=== PATIENT | male | born 1950 | race Caucasian/White ===

== ENCOUNTER 2016-12-19 11:14 | Inpatient (IN) | payer MEDICARE, MEDICAID ==
--- NOTE | 2016-12-19 11:54 | CR ---
Clinical history: 66-year-old male complaining shortness of breath. Interpretation: Less than optimal inspiratory effort "residential patient" reveals apparent... * new right lower lobe infiltrate or atelectasis when compared to 26 February 2016 exam. Normal cardiac silhouette without cephalization of flow signs of alveolar edema or dependent effusio n. Chronic atelectasis/fibrosis left base but no sign of lung mass hilar lymphadenopathy or other focal lobar consolidation. CONCLUSION: Patchy new consolidation right lung base (see above). Aspiration?
[2016-12-19 12:00] LABS: CHLORIDE,CL 94 mmol/L (101-111); SODIUM,NA 140 mmol/L (135-145)
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
[2016-12-19] MEDS ORDERED: Vancomycin 2 GM in Sodium Chloride 0.9% 500 ML IV ONE (12:46)
[2016-12-19] MEDS ORDERED: hydrOXYzine HCl 25 MG Tab PO PRN (13:22)
[2016-12-19] MEDS ORDERED: ALPRAZolam 0.5 MG Tab PO PRN (13:22)
[2016-12-19] MEDS ORDERED: Bisacodyl 10 MG Supp RECTAL PRN (13:22)
[2016-12-19] MEDS ORDERED: Zolpidem 5 MG Tab PO PRN (13:29)
[2016-12-19] MEDS ORDERED: Ondansetron 4 MG Tab.DIS PO PRN (13:29)
[2016-12-19] MEDS ORDERED: Albuterol 0.083% 2.5 MG/3 ML Neb Soln NEB PRN (13:34)
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
[2016-12-19] MEDS ORDERED: Ciprofloxacin in D5W 400 MG in Premix Bag 1 BAG IV SCH ×2 (14:45)
[2016-12-19] MEDS: Heparin Sodium 5,000 Units/ML Vial SUBCUT SCH ×2 (15:25→21:31)
[2016-12-19] MEDS: Furosemide 20 MG Tab PO SCH (15:26)
[2016-12-19] MEDS: Sodium Chloride 0.9% 10 ML Syringe FLUSH PRN (16:07)
[2016-12-19] MEDS: methylPREDNISolone Sodium Succinate 40 MG/1 ML SDV IVPUSH SCH ×2 (16:19→21:23)
[2016-12-19] MEDS: Potassium Chloride 10 MEQ Tab.ER PO SCH (17:35)
[2016-12-19] MEDS: Piperacillin/Tazobactam 3.375 GM in Sodium Chloride 0.9% 100 ML IV SCH ×2 (17:57→18:07)
[2016-12-19] MEDS: Albuterol/Ipratropium 3.0-0.5 MG/3 ML Neb Soln NEB SCH (19:28)
[2016-12-19] MEDS: Budesonide 0.5 MG/2 ML Neb Susp NEB SCH (19:28)
[2016-12-19] MEDS ORDERED: QUEtiapine 100 MG Tab PO SCH (21:00)
[2016-12-19] MEDS ORDERED: Divalproex Sodium 250 MG Tab.ER PO SCH (21:00)
[2016-12-19] MEDS ORDERED: MELATONIN 8 MG PO SCH (21:00)
[2016-12-19] MEDS: Vancomycin 1.5 GM in Sodium Chloride 0.9% 500 ML IV SCH (21:27)
[2016-12-19] MEDS: Allopurinol 100 MG Tab PO SCH (21:28)
[2016-12-19] MEDS: Lithium Carbonate 300 MG Tab.ER PO SCH (21:30)
[2016-12-19] MEDS: Lactulose Soln 10 GM/15 ML 30 ML UD Cup PO SCH (21:30)
[2016-12-19] MEDS: Latanoprost 0.005% Ophth Soln 2.5 ML Bottle EYEBOTH SCH (21:31)
[2016-12-20] MEDS: Albuterol/Ipratropium 3.0-0.5 MG/3 ML Neb Soln NEB SCH ×4 (00:17→18:16)
[2016-12-20] MEDS: Piperacillin/Tazobactam 3.375 GM in Sodium Chloride 0.9% 100 ML IV SCH ×5 (00:17→23:53)
[2016-12-20] MEDS: Sodium Chloride 0.9% 10 ML Syringe FLUSH PRN ×6 (03:33→23:52)
[2016-12-20] MEDS: Ciprofloxacin in D5W 400 MG in Premix Bag 1 BAG IV SCH ×4 (03:33→15:29)
[2016-12-20] MEDS: Vancomycin 1.5 GM in Sodium Chloride 0.9% 500 ML IV SCH ×3 (04:40→19:16)
[2016-12-20] MEDS: Heparin Sodium 5,000 Units/ML Vial SUBCUT SCH ×3 (06:00→21:29)
[2016-12-20] MEDS: Isosorbide Mononitrate 60 MG Tab.ER PO SCH (06:01)
[2016-12-20] MEDS: Pantoprazole 40 MG Tab.CR PO SCH (06:01)
[2016-12-20] MEDS: methylPREDNISolone Sodium Succinate 40 MG/1 ML SDV IVPUSH SCH ×3 (06:06→21:29)
[2016-12-20] MEDS: Budesonide 0.5 MG/2 ML Neb Susp NEB SCH ×2 (07:10→18:16)
[2016-12-20 09:50] LABS: O2 DELIVERY DEVICE NASAL CANNULA
[2016-12-20 09:52] LABS: BASE EXCESS ARTERIAL 11 mmol/L ((-2)-(+3)); BICARBONATE,ARTERIAL 39.9 mmol/L (22-26); O2 SATURATION ARTERIAL 90 % (95-100); PO2 ARTERIAL 65 mmHg (70-100)
[2016-12-20 09:54] LABS: PCO2 ARTERIAL 75 mmHg (35-45)
[2016-12-20 09:55] LABS: ALLEN TEST pos; O2 FLOW RATE 2
--- NOTE | 2016-12-20 11:08 | PCM.PN ---
- General Info Date of Service: 12/20/16 Admission Dx/Problem (Free Text): Admission Diagnosis/Problem Admission Diagnosis/Problem Pneumonia Subjective Update: was restless last evening this morning he mod to severe lethargy vitals stable and breathing spontaneously but can not wake him up - Review of Systems General: Denies: Fever Pulmonary: Reports: wheezing Cardiovascular: Denies: Chest Pain Gastrointestinal: Denies: Abdominal pain Neurological: Reports: Other (lethargy) - Patient Data Vitals - most recent: Last Vital Signs Temp 36.4 C 12/20/16 07:00 Pulse 89 12/20/16 07:08 Resp 20 12/20/16 07:00 BP 131/80 12/20/16 07:00 Pulse Ox 99 12/20/16 07:00 Weight - most recent: 126.008 kg I&O - last 24 hours: Intake & Output 12/19/16 12/20/16 12/20/16 22:59 06:59 14:59 Intake Total 1300 1400 Output Total 1400 1200 Balance -100 200 Lab Results last 24 hrs: Laboratory Results - last 24 hr 12/20/16 12/20/16 12/20/16 Range/Units 09:14 09:45 10:00 WBC (5.0-10.0) 10^3/uL RBC (4.6-6.2) 10^6/uL Hgb (14.0-18.0) g/dL Hct (40.0-54.0) % MCV (80-100) fL MCH (27.0-34.0) pg MCHC (33.0-35.0) g/dL Plt Count (150-450) 10^3/uL Neut % (Auto) (42.2-75.2) % Lymph % (Auto) (20.5-50.1) % [place] % (Auto) (2-8) % Eos % (Auto) (1.0-3.0) % Baso % (Auto) (0.0-1.0) % ABG pH 7.35 (7.35-7.45) ABG pCO2 75 H* (35-45) mmHg ABG pO2 65 L (70-100) mmHg ABG HCO3 39.9 H (22-26) mmol/L ABG O2 Saturation 90 L (95-100) % ABG Base Excess 11 H ((-2)-(+3)) mmol/L Jadiel Test pos O2 Delivery Device Nasal cannula Oxygen Flow Rate 2 Sodium (135-145) mmol/L Potassium (3.6-5.0) mmol/L Chloride (101-111) mmol/L Carbon Dioxide (21.0-31.0) mmol/L Anion Gap BUN (7-18) mg/dL Creatinine (0.6-1.3) mg/dL Est Cr Clr Drug Dosing mL/min Estimated GFR (MDRD) Glucose (74-105) mg/dL POC Glucose 155 H (70-105) mg/dl Calcium (8.4-10.2) mg/dl Ammonia 28 (11-35) umol/L 12/20/16 12/20/16 Range/Units 10:00 10:00 WBC 11.7 H (5.0-10.0) 10^3/uL RBC 4.40 L (4.6-6.2) 10^6/uL Hgb 13.1 L (14.0-18.0) g/dL Hct 43.0 (40.0-54.0) % MCV 97.7 (80-100) fL MCH 29.8 (27.0-34.0) pg MCHC 30.5 L (33.0-35.0) g/dL Plt Count 186 (150-450) 10^3/uL Neut % (Auto) 91.7 H (42.2-75.2) % Lymph % (Auto) 5.4 L (20.5-50.1) % [place] % (Auto) 2.8 (2-8) % Eos % (Auto) 0.0 L (1.0-3.0) % Baso % (Auto) 0.1 (0.0-1.0) % ABG pH (7.35-7.45) ABG pCO2 (35-45) mmHg ABG pO2 (70-100) mmHg ABG HCO3 (22-26) mmol/L ABG O2 Saturation (95-100) % ABG Base Excess ((-2)-(+3)) mmol/L Jadiel Test O2 Delivery Device Oxygen Flow Rate Sodium 140 (135-145) mmol/L Potassium 4.6 (3.6-5.0) mmol/L Chloride 96 L (101-111) mmol/L Carbon Dioxide 40.0 H (21.0-31.0) mmol/L Anion Gap 8.6 BUN 16 (7-18) mg/dL Creatinine 1.4 H (0.6-1.3) mg/dL Est Cr Clr Drug Dosing 55.28 mL/min Estimated GFR (MDRD) 51 Glucose 152 H (74-105) mg/dL POC Glucose (70-105) mg/dl Calcium 9.6 (8.4-10.2) mg/dl Ammonia (11-35) umol/L Swapnil Results last 24 hrs: Microbiology 12/19/16 18:22 Influenza Type A Antigen Screen - Final Nasal, Left NEGATIVE INFLUENZA A VIRUS AG Influenza Type B Antigen Screen - Final NEGATIVE INFLUENZA B VIRUS AG Med Orders - Current: Current Medications Albuterol (Proventil Neb Soln) 2.5 mg NEB Q2H PRN PRN Reason: sob Albuterol/Ipratropium (Duoneb 3.0-0.5 Mg/3 Ml) 3 ml NEB Q6HRRT [facility] Last Admin: 12/20/16 07:10 Dose: 3 ml Allopurinol (Zyloprim) 100 mg PO BID [facility] Last Admin: 12/19/16 21:28 Dose: 100 mg Alprazolam (Xanax) 1 mg PO Q8H PRN PRN Reason: Anxiety Aspirin (Halfprin) 81 mg PO DAILY [facility] Bisacodyl (Dulcolax) 10 mg RECTAL DAILY PRN PRN Reason: Constipation Budesonide (Pulmicort) 0.5 mg NEB BIDRT [facility] Last Admin: 12/20/16 07:10 Dose: 0.5 mg Divalproex Sodium (Depakote Er) 750 mg PO BEDTIME [facility] Last Admin: 12/19/16 21:29 Dose: 750 mg Furosemide (Lasix) 60 mg PO DAILY [facility] Furosemide (Lasix) 20 mg PO DAILY@1400 [facility] Last Admin: 12/19/16 15:26 Dose: 20 mg Heparin Sodium (Porcine) (Heparin Sodium) 5,000 units SUBCUT Q8HR [facility] Last Admin: 12/20/16 06:00 Dose: 5,000 units Hydroxyzine HCl (Atarax) 25 mg PO Q8HR PRN PRN Reason: Anxiety Piperacillin Sod/Tazobactam (Sod 3.375 gm/ Sodium Chloride) 100 mls @ 200 mls/ hr IV Q6HR [facility] Last Infusion: 12/20/16 07:00 Dose: Infused Vancomycin HCl 1.5 gm/ Sodium (Chloride) 500 mls @ 333.333 mls/hr IV Q8H [facility] Last Admin: 12/20/16 04:40 Dose: 333.333 mls/hr Ciprofloxacin/Dextrose 400 mg/ (Premix) 200 mls @ 200 mls/hr IV Q12H [facility] Last Admin: 12/20/16 03:33 Dose: 200 mls/hr Isosorbide Mononitrate (Imdur) 60 mg PO DAILY@0700 [facility] Last Admin: 12/20/16 06:01 Dose: 60 mg Lactulose (Cephulac) 10 gm PO BEDTIME [facility] Last Admin: 12/19/16 21:30 Dose: 10 gm Latanoprost (Xalatan 0.005% Ophth Soln) 0 ml EYEBOTH BEDTIME [facility] Last Admin: 12/19/16 21:31 Dose: 1 drop [place] Carbonate (Lithobid) 300 mg PO BID [facility] Last Admin: 12/19/16 21:30 Dose: 300 mg Methylprednisolone Sodium Succinate (Solu-Medrol) 40 mg IVPUSH Q8HR [facility] Last Admin: 12/20/16 06:06 Dose: 40 mg Non-Formulary Medication (Melatonin [Melatonin]) 8 mg PO BEDTIME [facility] Ondansetron HCl (Zofran Odt) 4 mg PO Q6H PRN PRN Reason: nausea, able to take PO Pantoprazole Sodium (Protonix) 40 mg PO ACBRK [facility] Last Admin: 12/20/16 06:01 Dose: 40 mg Potassium Chloride (Klor-Con 10) 20 meq PO BIDMEALS [facility] Last Admin: 12/19/16 17:35 Dose: 20 meq Quetiapine Fumarate (Seroquel) 450 mg PO BEDTIME [facility] Last Admin: 12/19/16 21:29 Dose: 450 mg Senna/Docusate Sodium (Senna Plus) 2 tab PO BID [facility] Last Admin: 12/19/16 21:28 Dose: 2 tab Simvastatin (Zocor) 20 mg PO BEDTIME [facility] Sodium Chloride (Saline Flush) 10 ml FLUSH ASDIRECTED PRN PRN Reason: Keep Vein Open Last Admin: 12/20/16 04:42 Dose: 10 ml Spironolactone (Aldactone) 50 mg PO DAILY [facility] Vancomycin HCl (Pharmacy To Dose - Vancomycin) 1 dose .XX ASDIRECTED [facility] Zolpidem Tartrate (Ambien) 5 mg PO BEDTIME PRN PRN Reason: Sleep Discontinued Medications Vancomycin HCl 2 gm/ Sodium (Chloride) 500 mls @ 334 mls/hr IV ONETIME ONE Stop: 12/19/16 14:15 Last Admin: 12/19/16 13:07 Dose: 334 mls/hr Ciprofloxacin/Dextrose 400 mg/ (Premix) 200 mls @ 200 mls/hr IV Q12HR [facility] Last Admin: 12/19/16 16:28 Dose: 200 mls/hr - Exam Quality Assessment: supplemental oxygen General: no acute distress, obtunded Neck: supple Lungs: Rhonchi, Wheezing Cardiovascular: Regular Rate, Regular Rhythm Abdomen: bowel sounds present, soft, no tenderness, other (morbidly obese) Extremities: edema (b/l legs) Skin: warm, dry Neurological: other (not following commands) Psy/Mental Status: other (non responsive) - Problem List & Annotations (1) Pneumonia SNOMED Code(s): 294687186 Code(s): J18.9 - PNEUMONIA, UNSPECIFIED ORGANISM Status: Acute Current Visit: Yes Qualifiers: Pneumonia type: due to unspecified organism Laterality: right Lung location: lower lobe of lung Qualified Code(s): J18.1 - Lobar pneumonia, unspecified organism (2) Arterial ischemic stroke, MCA (middle cerebral artery), left, remote, resolved SNOMED Code(s): 234925600, 632836674 Code(s): Z86.73 - PRSNL HX OF TIA (TIA), AND CEREB INFRC W/O RESID DEFICITS Status: Chronic Current Visit: No Onset Date: 11/24/14 (3) COPD (chronic obstructive pulmonary disease) SNOMED Code(s): 28717598 Code(s): J44.9 - CHRONIC OBSTRUCTIVE PULMONARY DISEASE, UNSPECIFIED Status : Chronic Current Visit: No (4) Hypertension SNOMED Code(s): 23756389 Code(s): I10 - ESSENTIAL (PRIMARY) HYPERTENSION Status: Chronic Current Visit: No Qualifiers: Hypertension type: unspecified secondary hypertension Qualified Code(s): I15.9 - Secondary hypertension, unspecified - Problem List Review Problem List Initiated/Reviewed/Updated: Yes - My Orders Last 24 Hours: My Active Orders 12/19/16 13:33 RT Aerosol Therapy [RC] ASDIRECTED 12/19/16 13:34 Albuterol [Proventil Neb Soln] 2.5 mg NEB Q2H PRN 12/19/16 13:37 CULTURE SPUTUM + SMEAR [RM] Routine 12/19/16 13:45 Vancomycin Pharmacy to Dose [Pharmacy to Dose - Vancomycin] 1 dose .XX ASDIRECTED 12/19/16 14:45 methylPREDNISolone Sod Succ [Solu-MEDROL] 40 mg IVPUSH Q8HR 12/19/16 15:00 Piperacillin/Tazobactam [Zosyn] 3.375 gm Sodium Chloride 0.9% [Normal Saline] 100 ml IV Q6HR 12/19/16 18:00 Albuterol/Ipratropium [DuoNeb 3.0-0.5 MG/3 ML] 3 ml NEB Q6HRRT Budesonide [Pulmicort] 0.5 mg NEB BIDRT 12/19/16 21:00 Vancomycin 1.5 gm Sodium Chloride 0.9% [Normal Saline] 500 ml IV Q8H 12/20/16 04:00 Ciprofloxacin in D5W [Cipro in D5W 400 MG/200 ML] 400 mg Premix Bag 1 bag IV Q12H 12/20/16 09:41 ABG [BLOOD GAS ARTERIAL] [BG] Routine 12/20/16 12:30 CREATININE W/GFR [CHEM] Timed VANCOMYCIN TROUGH [CHEM] Timed - Plan Plan:: 66-year-old [facility] resident presented with an acute on chronic hypoxemic respiratory failure. He has been requiring home oxygen to start with. Has a history of COPD, morbid obesity, sleep apnea. acute encephalopathy due to metabolic acidosis and co2 narcosis The patient's blood pressure heart rate oxygen saturation and glucose is normal Obtained ABG that showed respiratory acidosis with CO2 retention Will start BiPAP Decrease evening medications that can cause lethargy: depakote to 500mg ER, seroquel to 300 mg shortness of breath with acute on chronic hypoxemic respiratory failure Likely due to acute COPD exacerbation and pneumonia Supplement oxygen as needed for now treat with BiPAP Acute COPD exacerbation Treat with IV Solu Medrol, inhaled Pulmicort, scheduled DuoNeb, p.r.n. albuterol Acute healthcare associated pneumonia blood culture pending sputum culture Pending influenza swab: negative Treat empirically with ciprofloxacin Zosyn and vancomycin Bipolar disorder Continue Seroquel, lithium Morbid obesity This contribute to hypoxemic respiratory failure We will treat with physical therapy and occupational therapy Hypertension Treat with atenolol History of CVA Will have pt/ot Continue aspirin Chronic kidney disease stage II Monitor electrolytes and renal function tests Sleep apnea encourage to use BiPAP at night Lymphedema and chronic lower extremity swelling Use compression stocking on the right leg and lymphedema wrap on the left Continue Lasix and Aldactone follow electrolytes DVT prophylaxis with subcutaneous heparin
[2016-12-20] MEDS: Aspirin 81 MG Tab.EC PO SCH (14:27)
[2016-12-20] MEDS: Potassium Chloride 10 MEQ Tab.ER PO SCH ×2 (14:27→18:15)
[2016-12-20] MEDS: Spironolactone 25 MG Tab PO SCH (14:27)
[2016-12-20] MEDS: Allopurinol 100 MG Tab PO SCH ×2 (14:27→20:53)
[2016-12-20] MEDS: Furosemide 20 MG Tab PO SCH ×2 (14:27→14:34)
[2016-12-20] MEDS: Lithium Carbonate 300 MG Tab.ER PO SCH (14:28)
[2016-12-20] MEDS ORDERED: Furosemide 40 MG/4 ML VIAL IVPUSH ONE (14:55)
[2016-12-20] MEDS: Simvastatin 10 MG Tab PO SCH (20:52)
[2016-12-20] MEDS: Lactulose Soln 10 GM/15 ML 30 ML UD Cup PO SCH (20:53)
[2016-12-20] MEDS: Latanoprost 0.005% Ophth Soln 2.5 ML Bottle EYEBOTH SCH (20:54)
[2016-12-20] MEDS ORDERED: Divalproex Sodium 250 MG Tab.ER PO SCH (21:00)
[2016-12-20] MEDS ORDERED: QUEtiapine 100 MG Tab PO SCH (21:00)
[2016-12-21] MEDS: Albuterol/Ipratropium 3.0-0.5 MG/3 ML Neb Soln NEB SCH ×4 (00:04→17:42)
[2016-12-21] MEDS: Sodium Chloride 0.9% 10 ML Syringe FLUSH PRN ×4 (00:51→06:11)
[2016-12-21] MEDS: Ciprofloxacin in D5W 400 MG in Premix Bag 1 BAG IV SCH ×4 (03:28→16:17)
[2016-12-21] MEDS: methylPREDNISolone Sodium Succinate 40 MG/1 ML SDV IVPUSH SCH ×3 (05:35→22:02)
[2016-12-21] MEDS: Piperacillin/Tazobactam 3.375 GM in Sodium Chloride 0.9% 100 ML IV SCH ×4 (05:37→23:55)
[2016-12-21] MEDS: Isosorbide Mononitrate 60 MG Tab.ER PO SCH (06:03)
[2016-12-21] MEDS: Pantoprazole 40 MG Tab.CR PO SCH (06:03)
[2016-12-21] MEDS: Heparin Sodium 5,000 Units/ML Vial SUBCUT SCH ×3 (06:04→22:02)
[2016-12-21] MEDS: Vancomycin 1.5 GM in Sodium Chloride 0.9% 500 ML IV SCH (06:12)
[2016-12-21] MEDS: Budesonide 0.5 MG/2 ML Neb Susp NEB SCH ×2 (07:32→17:42)
[2016-12-21] MEDS ORDERED: QUEtiapine 100 MG Tab PO ONE (09:53)
[2016-12-21] MEDS: Spironolactone 25 MG Tab PO SCH (10:16)
[2016-12-21] MEDS: Aspirin 81 MG Tab.EC PO SCH (10:16)
[2016-12-21] MEDS: Allopurinol 100 MG Tab PO SCH ×2 (10:16→20:41)
[2016-12-21] MEDS: Furosemide 20 MG Tab PO SCH ×2 (10:17→13:26)
[2016-12-21] MEDS: Potassium Chloride 10 MEQ Tab.ER PO SCH ×2 (10:17→17:57)
[2016-12-21] MEDS: Lithium Carbonate 300 MG Tab.ER PO SCH ×2 (10:24→20:37)
--- NOTE | 2016-12-21 11:10 | PCM.PN ---
- General Info Date of Service: 12/21/16 Admission Dx/Problem (Free Text): Admission Diagnosis/Problem Admission Diagnosis/Problem Pneumonia Subjective Update: the patient was very lethargic yesterday Noted to have an acute hypoxemic hypercapnic respiratory failure hAs spent about 24 hours on BiPAP The patient's alertness has significantly improved Today he is sitting up on the side of the bed, complaining that he cannot tolerate the BiPAP He has been on nasal cannula oxygen in the past few hours Appears disoriented to recent events, place Functional Status: Reports: pain controlled, tolerating diet - Review of Systems General: Reports: Weakness. Denies: Fever Pulmonary: Denies: shortness of breath, cough Cardiovascular: Denies: Chest Pain Gastrointestinal: Denies: Abdominal pain Neurological: Reports: Confusion Psychiatric: Denies: hallucinations - Patient Data Vitals - most recent: Last Vital Signs Temp 36.6 C 12/21/16 07:00 Pulse 69 12/21/16 07:25 Resp 20 12/21/16 07:00 BP 133/90 12/21/16 07:00 Pulse Ox 92 L 12/21/16 07:25 Weight - most recent: 126.008 kg I&O - last 24 hours: Intake & Output 12/20/16 12/21/16 12/21/16 22:59 06:59 14:59 Intake Total 1969 800 521 Output Total 1200 600 Balance 769 200 521 Lab Results last 24 hrs: Laboratory Results - last 24 hr 12/20/16 12/21/16 12/21/16 Range/Units 13:20 06:15 06:15 WBC 11.4 H (5.0-10.0) 10^3/uL RBC 3.99 L (4.6-6.2) 10^6/uL Hgb 12.2 L (14.0-18.0) g/dL Hct 37.9 L (40.0-54.0) % MCV 95.0 (80-100) fL MCH 30.6 (27.0-34.0) pg MCHC 32.2 L (33.0-35.0) g/dL Plt Count 212 (150-450) 10^3/uL Neut % (Auto) 83.9 H (42.2-75.2) % Lymph % (Auto) 8.7 L (20.5-50.1) % [place] % (Auto) 7.3 (2-8) % Eos % (Auto) 0.0 L (1.0-3.0) % Baso % (Auto) 0.1 (0.0-1.0) % Add Manual Diff Yes Neutrophils % (Manual) 89 % Band Neutrophils % 1 % Lymphocytes % (Manual) 5 % Monocytes % (Manual) 5 % Nucleated RBCs 1 /100WBC Sodium 142 (135-145) mmol/L Potassium 3.8 (3.6-5.0) mmol/L Chloride 98 L (101-111) mmol/L Carbon Dioxide 36.0 H (21.0-31.0) mmol/L Anion Gap 11.8 BUN 30 H (7-18) mg/dL Creatinine 1.5 H (0.6-1.3) mg/dL Est Cr Clr Drug Dosing 51.59 mL/min Estimated GFR (MDRD) 47 Glucose 143 H (74-105) mg/dL Calcium 9.4 (8.4-10.2) mg/dl Vancomycin Trough 22.8 H (10-15) ug/ml Med Orders - Current: Current Medications Albuterol (Proventil Neb Soln) 2.5 mg NEB Q2H PRN PRN Reason: sob Albuterol/Ipratropium (Duoneb 3.0-0.5 Mg/3 Ml) 3 ml NEB Q6HRRT [facility] Last Admin: 12/21/16 07:32 Dose: 3 ml Allopurinol (Zyloprim) 100 mg PO BID [facility] Last Admin: 12/21/16 10:16 Dose: 100 mg Aspirin (Halfprin) 81 mg PO DAILY [facility] Last Admin: 12/21/16 10:16 Dose: 81 mg Bisacodyl (Dulcolax) 10 mg RECTAL DAILY PRN PRN Reason: Constipation Budesonide (Pulmicort) 0.5 mg NEB BIDRT [facility] Last Admin: 12/21/16 07:32 Dose: 0.5 mg Divalproex Sodium (Depakote Er) 500 mg PO BEDTIME [facility] Furosemide (Lasix) 60 mg PO DAILY [facility] Last Admin: 12/21/16 10:17 Dose: 60 mg Furosemide (Lasix) 20 mg PO DAILY@1400 [facility] Last Admin: 12/20/16 14:34 Dose: Not Given Heparin Sodium (Porcine) (Heparin Sodium) 5,000 units SUBCUT Q8HR [facility] Last Admin: 12/21/16 06:04 Dose: 5,000 units Piperacillin Sod/Tazobactam (Sod 3.375 gm/ Sodium Chloride) 100 mls @ 200 mls/ hr IV Q6HR [facility] Last Admin: 12/21/16 05:37 Dose: 200 mls/hr Ciprofloxacin/Dextrose 400 mg/ (Premix) 200 mls @ 200 mls/hr IV Q12H [facility] Last Admin: 12/21/16 03:28 Dose: 200 mls/hr Isosorbide Mononitrate (Imdur) 60 mg PO DAILY@0700 [facility] Last Admin: 12/21/16 06:03 Dose: 60 mg Lactulose (Cephulac) 10 gm PO BEDTIME [facility] Last Admin: 12/20/16 20:53 Dose: 10 gm Latanoprost (Xalatan 0.005% Ophth Soln) 0 ml EYEBOTH BEDTIME [facility] Last Admin: 12/20/16 20:54 Dose: 1 drop [place] Carbonate (Lithobid) 300 mg PO BID [facility] Last Admin: 12/21/16 10:24 Dose: 300 mg Methylprednisolone Sodium Succinate (Solu-Medrol) 40 mg IVPUSH Q8HR [facility] Last Admin: 12/21/16 05:35 Dose: 40 mg Ondansetron HCl (Zofran Odt) 4 mg PO Q6H PRN PRN Reason: nausea, able to take PO Pantoprazole Sodium (Protonix) 40 mg PO ACBRK [facility] Last Admin: 12/21/16 06:03 Dose: 40 mg Potassium Chloride (Klor-Con 10) 20 meq PO BIDMEALS [facility] Last Admin: 12/21/16 10:17 Dose: 20 meq Quetiapine Fumarate (Seroquel) 300 mg PO BEDTIME [facility] Senna/Docusate Sodium (Senna Plus) 2 tab PO BID [facility] Last Admin: 12/21/16 10:16 Dose: 2 tab Simvastatin (Zocor) 20 mg PO BEDTIME [facility] Last Admin: 12/20/16 20:52 Dose: 20 mg Sodium Chloride (Saline Flush) 10 ml FLUSH ASDIRECTED PRN PRN Reason: Keep Vein Open Last Admin: 12/21/16 06:11 Dose: 10 ml Spironolactone (Aldactone) 50 mg PO DAILY [facility] Last Admin: 12/21/16 10:16 Dose: 50 mg Discontinued Medications Alprazolam (Xanax) 1 mg PO Q8H PRN PRN Reason: Anxiety Divalproex Sodium (Depakote Er) 750 mg PO BEDTIME [facility] Last Admin: 12/19/16 21:29 Dose: 750 mg Divalproex Sodium (Depakote Er) 500 mg PO BEDTIME [facility] Furosemide (Lasix) 40 mg IVPUSH NOW ONE Stop: 12/20/16 14:56 Last Admin: 12/20/16 15:30 Dose: 40 mg Hydroxyzine HCl (Atarax) 25 mg PO Q8HR PRN PRN Reason: Anxiety Vancomycin HCl 2 gm/ Sodium (Chloride) 500 mls @ 334 mls/hr IV ONETIME ONE Stop: 12/19/16 14:15 Last Admin: 12/19/16 13:07 Dose: 334 mls/hr Ciprofloxacin/Dextrose 400 mg/ (Premix) 200 mls @ 200 mls/hr IV Q12HR [facility] Last Admin: 12/19/16 16:28 Dose: 200 mls/hr Vancomycin HCl 1.5 gm/ Sodium (Chloride) 500 mls @ 333.333 mls/hr IV Q8H [facility] Last Admin: 12/20/16 14:32 Dose: Not Given Vancomycin HCl 1.5 gm/ Sodium (Chloride) 500 mls @ 333.333 mls/hr IV Q12H [facility] Last Admin: 12/21/16 06:12 Dose: 333.333 mls/hr [place] Carbonate (Lithobid) 300 mg PO BID [facility] Last Admin: 12/20/16 14:28 Dose: Not Given Non-Formulary Medication (Melatonin [Melatonin]) 8 mg PO BEDTIME [facility] Last Admin: 12/20/16 14:29 Dose: Not Given Quetiapine Fumarate (Seroquel) 450 mg PO BEDTIME [facility] Last Admin: 12/19/16 21:29 Dose: 450 mg Quetiapine Fumarate (Seroquel) 300 mg PO BEDTIME [facility] Quetiapine Fumarate (Seroquel) 100 mg PO ONETIME ONE Stop: 12/21/16 09:54 Last Admin: 12/21/16 10:24 Dose: 100 mg Vancomycin HCl (Pharmacy To Dose - Vancomycin) 1 dose .XX ASDIRECTED [facility] Zolpidem Tartrate (Ambien) 5 mg PO BEDTIME PRN PRN Reason: Sleep - Exam Quality Assessment: supplemental oxygen General: alert. No: oriented Neck: supple Lungs: Normal respiratory effort, Decreased breath sounds. No: Rales Cardiovascular: Regular Rate, Regular Rhythm Abdomen: bowel sounds present, soft, no tenderness, no distension, other (obese) Extremities: edema (bilateral 2+) Skin: warm, dry Neurological: no new focal deficit Psy/Mental Status: alert, normal affect (hyperactive, mildly agitated), other ( he says he is not having with his life since his stroke) - Problem List & Annotations (1) Pneumonia SNOMED Code(s): 099121036 Code(s): J18.9 - PNEUMONIA, UNSPECIFIED ORGANISM Status: Acute Current Visit: Yes Qualifiers: Pneumonia type: due to unspecified organism Laterality: right Lung location: lower lobe of lung Qualified Code(s): J18.1 - Lobar pneumonia, unspecified organism (2) Arterial ischemic stroke, MCA (middle cerebral artery), left, remote, resolved SNOMED Code(s): 095134251, 352590745 Code(s): Z86.73 - PRSNL HX OF TIA (TIA), AND CEREB INFRC W/O RESID DEFICITS Status: Chronic Current Visit: No Onset Date: 11/24/14 (3) COPD (chronic obstructive pulmonary disease) SNOMED Code(s): 02713636 Code(s): J44.9 - CHRONIC OBSTRUCTIVE PULMONARY DISEASE, UNSPECIFIED Status : Chronic Current Visit: No (4) Hypertension SNOMED Code(s): 22058299 Code(s): I10 - ESSENTIAL (PRIMARY) HYPERTENSION Status: Chronic Current Visit: No Qualifiers: Hypertension type: unspecified secondary hypertension Qualified Code(s): I15.9 - Secondary hypertension, unspecified - Problem List Review Problem List Initiated/Reviewed/Updated: Yes - My Orders Last 24 Hours: My Active Orders 12/21/16 10:00 [place] Carbonate [Lithobid] 300 mg PO BID 12/21/16 21:00 Divalproex Sodium [Depakote ER] 500 mg PO BEDTIME [facility] [SEROquel] 300 mg PO BEDTIME - Plan Plan:: 66-year-old [facility] resident presented with an acute on chronic hypoxemic respiratory failure. He has been requiring home oxygen to start with. Has a history of COPD, morbid obesity, sleep apnea. acute encephalopathy due to metabolic acidosis and co2 narcosis resolved with the use of BiPAP the patient has sleep apnea and was suggested to use BiPAP at night but he is non-compliant and poorly tolerating it I have held but now will resume with the decreased dose of his medications that can cause lethargy: depakote to 500mg ER, seroquel to 300 mg shortness of breath with acute on chronic hypoxemic hypercapnic respiratory failure Likely due to acute COPD exacerbation and pneumonia Supplement oxygen as needed for now treat with BiPAP as tolerated Acute COPD exacerbation Treat with IV Solu Medrol, inhaled Pulmicort, scheduled DuoNeb, p.r.n. albuterol Acute healthcare associated pneumonia blood culture pending sputum culture Pending influenza swab: negative Treat empirically with ciprofloxacin Zosyn Will stop vancomycin Bipolar disorder Continue Seroquel, lithium at reduced doses Will give a stat dose of Seroquel 100 mg now Morbid obesity This contribute to hypoxemic respiratory failure We will treat with physical therapy and occupational therapy Hypertension Treat with atenolol History of CVA continue with pt/ot Continue aspirin Chronic kidney disease stage II Monitor electrolytes and renal function tests Sleep apnea encourage to use BiPAP at night Lymphedema and chronic lower extremity swelling Use compression stocking on the right leg and lymphedema wrap on the left Continue Lasix and Aldactone follow electrolytes DVT prophylaxis with subcutaneous heparin
[2016-12-21] MEDS: Divalproex Sodium 250 MG Tab.ER PO SCH (20:38)
[2016-12-21] MEDS: QUEtiapine 100 MG Tab PO SCH (20:39)
[2016-12-21] MEDS: Simvastatin 10 MG Tab PO SCH (20:40)
[2016-12-21] MEDS: Latanoprost 0.005% Ophth Soln 2.5 ML Bottle EYEBOTH SCH (20:43)
[2016-12-21] MEDS: Lactulose Soln 10 GM/15 ML 30 ML UD Cup PO SCH (21:50)
[2016-12-22] MEDS: Albuterol/Ipratropium 3.0-0.5 MG/3 ML Neb Soln NEB SCH ×4 (01:32→18:11)
[2016-12-22] MEDS: Ciprofloxacin in D5W 400 MG in Premix Bag 1 BAG IV SCH ×4 (03:28→15:54)
[2016-12-22] MEDS: Heparin Sodium 5,000 Units/ML Vial SUBCUT SCH ×3 (05:59→21:46)
[2016-12-22] MEDS: methylPREDNISolone Sodium Succinate 40 MG/1 ML SDV IVPUSH SCH ×3 (06:01→21:48)
[2016-12-22] MEDS: Isosorbide Mononitrate 60 MG Tab.ER PO SCH (06:02)
[2016-12-22] MEDS: Pantoprazole 40 MG Tab.CR PO SCH (06:02)
[2016-12-22] MEDS: Piperacillin/Tazobactam 3.375 GM in Sodium Chloride 0.9% 100 ML IV SCH ×3 (06:03→18:05)
[2016-12-22] MEDS: Budesonide 0.5 MG/2 ML Neb Susp NEB SCH ×3 (07:42→18:11)
[2016-12-22] MEDS: Furosemide 20 MG Tab PO SCH ×2 (08:12→14:51)
[2016-12-22] MEDS: Lithium Carbonate 300 MG Tab.ER PO SCH ×2 (08:12→21:52)
[2016-12-22] MEDS: Potassium Chloride 10 MEQ Tab.ER PO SCH ×2 (08:13→18:06)
[2016-12-22] MEDS: Allopurinol 100 MG Tab PO SCH ×2 (08:13→21:54)
[2016-12-22] MEDS: Spironolactone 25 MG Tab PO SCH (08:13)
[2016-12-22] MEDS: Aspirin 81 MG Tab.EC PO SCH (08:13)
[2016-12-22] MEDS: Sodium Chloride 0.9% 10 ML Syringe FLUSH PRN ×4 (12:04→21:48)
--- NOTE | 2016-12-22 13:18 | PN ---
DATE: 12/22/2016 HISTORY OF PRESENT ILLNESS: Mr. Onel Slaugther is a 66-year-old male with medical history significant for hypertension, hyperlipidemia, morbid obesity, obstructive sleep apnea, chronic obstructive pulmonary disease, lymphedema, alf resident, admitted with increasing shortness of breath, wheezing, and hypoxia, was noted to be in acute COPD exacerbation and possible healthcare- associated pneumonia. For the last 24 hours, the patient's shortness of breath seems to be improving. He denies any complaints of chest pain. No shortness of breath. No abdominal pain. No nausea. No vomiting. No diarrhea, but the patient claims that he has been in a lot of stress and he feels as if he is going to . He relates his condition to his previous hospitalization where he had stroke in the hospital, so he tends to have a posttraumatic stress disorder. REVIEW OF SYSTEMS: Cardiovascular, respiratory, gastrointestinal, neurology, constitutional were all evaluated. PHYSICAL EXAMINATION: Vital Signs: Temperature of 98.2, pulse of 80, blood pressure 125/77, respiratory rate of 20, saturating at 90% on 2 L of oxygen. General Appearance: The patient is well oriented to time, place, and person. Follows commands spontaneously. Cardiovascular: S1, S2 heard with normal intensity. No gallops. Respiratory: Clear to auscultation bilaterally. No wheeze. Mild crepitations at the bases. Mild wheeze at the bases. Abdomen: Soft. Bowel sounds positive. Nontender. No rigidity. Extremities: Mild edema in bilateral lower extremities. NEUROLOGY: No gross focal neurological deficit. Skin: No acute rash noted. PSYCHIATRY: The patient appears to be stressed out and in mild distress. MEDICATIONS: 1. Proventil 2.5 mg nebulizer q.2 hourly as needed for shortness of breath. 2. DuoNeb 3 mL nebulizer q.6 hours. 3. Allopurinol 100 mg twice a day. 4. Aspirin 81 mg daily. 5. Dulcolax 10 mg rectal as needed for constipation. 6. Pulmicort 0.5 mg nebulizer twice a day. 7. Ciprofloxacin every 12 hours. 8. Depakote 500 mg at bedtime. 9. Lasix 20 mg daily at noon and 60 mg in a.m. 10.Heparin 5000 subcutaneous q.8 hourly. 11.Imdur 60 mg daily. 12.Lactulose 10 mg at bedtime. 13.Xalatan eye drops. 14.[place] 300 mg twice a day. 15.Methylprednisolone 40 mg IV q.8 hourly. 16.Zofran 4 mg q.6 hours. 17.Protonix 40 mg daily. 18.Zosyn q.6 hours. 19.Potassium chloride 20 mEq twice a day. 20.Seroquel 300 mg at bedtime. 21.Zocor 20 mg at bedtime. 22.Spironolactone 50 mg daily. LABORATORY DATA: Reviewed. WBC 9.7, hemoglobin 13.5, hematocrit 42.2, platelet count 228. Sodium 141, potassium 3.8, chloride 100, bicarb 31, BUN 32, creatinine 1.5. Glucose 140. Microbiology so far is good, no growth. ASSESSMENT: 1. Acute chronic obstructive pulmonary disease exacerbation. 2. Possible healthcare-associated pneumonia. 3. Acute on chronic hypoxic respiratory failure. 4. Bipolar disorder. 5. Morbid obesity. 6. Hypertension. 7. History of cerebrovascular accident. 8. Chronic artery disease. 9. Obstructive sleep apnea, requiring CPAP at night. PLAN: 1. Acute COPD exacerbation. The patient is currently on nebulizers with Pulmicort and DuoNeb nebulizer, and he is on IV methylprednisone. His wheezing has much improved. We will taper down the steroids to oral prednisone at this time. We will closely follow. 2. Acute on chronic hypoxic respiratory failure. The patient was noted to be very hypoxic at the time of admission. He is on chronic oxygen, continue the same. Try to maintain saturations between 90% to 95%. 3. Pneumonia. This is possibly healthcare-associated pneumonia. The patient is currently on broad-spectrum antibiotics, continue the same. We will switch him to oral antibiotics at the time of discharge. 4. Bipolar disorder. The patient is currently on Seroquel and lithium, continue the same. The patient has been in little distress at this time. As the patient relates to his condition with history of stroke in the past, the patient was educated about stress relieving techniques and explained about importance of treatment, which he understands and is more calmer at this time. 5. Hypertension. The patient's blood pressure seems to be in acceptable range. Continue with current antihypertensive medications. 6. Sleep apnea. Continue with CPAP. 7. DVT prophylaxis. Continue with heparin. 8. Chronic kidney disease, remains stable. Try to avoid any nephrotoxic agents. Dose adjust medications for renal function, especially the IV antibiotics. 9. Possible discharge in a.m. if he remains hemodynamically stable. [facility] /[id number]
[2016-12-22] MEDS: Divalproex Sodium 250 MG Tab.ER PO SCH (21:52)
[2016-12-22] MEDS: QUEtiapine 100 MG Tab PO SCH (21:53)
[2016-12-22] MEDS: Simvastatin 10 MG Tab PO SCH (21:54)
[2016-12-22] MEDS: Latanoprost 0.005% Ophth Soln 2.5 ML Bottle EYEBOTH SCH (21:55)
[2016-12-22] MEDS: Lactulose Soln 10 GM/15 ML 30 ML UD Cup PO SCH (21:57)
[2016-12-23] MEDS: Sodium Chloride 0.9% 10 ML Syringe FLUSH PRN ×7 (00:24→21:59)
[2016-12-23] MEDS: Piperacillin/Tazobactam 3.375 GM in Sodium Chloride 0.9% 100 ML IV SCH ×4 (00:25→17:11)
[2016-12-23] MEDS: Albuterol/Ipratropium 3.0-0.5 MG/3 ML Neb Soln NEB SCH ×4 (00:30→17:31)
[2016-12-23] MEDS: Ciprofloxacin in D5W 400 MG in Premix Bag 1 BAG IV SCH ×4 (03:34→15:29)
[2016-12-23] MEDS: Heparin Sodium 5,000 Units/ML Vial SUBCUT SCH ×3 (06:09→21:38)
[2016-12-23] MEDS: methylPREDNISolone Sodium Succinate 40 MG/1 ML SDV IVPUSH SCH ×3 (06:10→21:46)
[2016-12-23] MEDS: Pantoprazole 40 MG Tab.CR PO SCH (06:16)
[2016-12-23] MEDS: Isosorbide Mononitrate 60 MG Tab.ER PO SCH (06:42)
[2016-12-23] MEDS: Furosemide 20 MG Tab PO SCH ×2 (08:33→13:18)
[2016-12-23] MEDS: Spironolactone 25 MG Tab PO SCH (08:37)
[2016-12-23] MEDS: Potassium Chloride 10 MEQ Tab.ER PO SCH ×2 (08:37→17:30)
[2016-12-23] MEDS: Allopurinol 100 MG Tab PO SCH ×2 (08:38→21:29)
[2016-12-23] MEDS: Aspirin 81 MG Tab.EC PO SCH (08:38)
[2016-12-23] MEDS: Lithium Carbonate 300 MG Tab.ER PO SCH ×2 (08:39→21:29)
[2016-12-23] MEDS: Budesonide 0.5 MG/2 ML Neb Susp NEB SCH ×2 (08:39→17:31)
--- NOTE | 2016-12-23 12:47 | PN ---
DATE: 12/23/2016 HISTORY OF PRESENT ILLNESS: Mr. Onel Slaughter is a 66-year-old male with medical history significant for hypertension, hyperlipidemia, morbid obesity, obstructive sleep apnea, chronic obstructive pulmonary disease, lymphedema, long term resident, admitted with increasing shortness of breath and wheezing and was noted to be in acute COPD exacerbation and possible healthcare- associated pneumonia. For the past 24 hours, the patient denies any complaints of chest pain. No shortness of breath. No abdominal pain. No nausea. No vomiting. No diarrhea. The patient continues to have the Yates catheter in place which was placed on this admission. REVIEW OF SYSTEMS: Cardiovascular, respiratory, gastrointestinal, neurology, constitutional were all evaluated. PHYSICAL EXAMINATION: Vital Signs: Temperature of 97.8, pulse of 67, respiratory rate of 20, blood pressure 120/70, saturating at 94% on 2 L of oxygen. General Appearance: The patient is well oriented to time, place, and person. Follows commands spontaneously. Cardiovascular System: S1 and S2 heard with normal intensity. No gallops. Respiratory System: Clear to auscultation bilaterally except for mild wheeze and crepitations at the bases. Abdomen: Soft. Bowel sounds positive. Nontender. No rigidity. Extremities: Edema in bilateral lower extremities. Neurology: No gross focal neurological deficit. MEDICATIONS: Reviewed. Continue with: 1. Albuterol 2.5 nebulizer every 2 hours as needed for shortness of breath. 2. DuoNeb 3 mL nebulizer q.6 hours scheduled. 3. Allopurinol 100 mg twice a day. 4. Aspirin 81 mg daily. 5. Dulcolax 10 mg rectal as needed for constipation. 6. Pulmicort nebulizer twice a day. 7. Ciprofloxacin q.12 hourly. 8. Depakote 500 mg at bedtime. 9. Lasix 20 mg in p.m. and Lasix 60 mg in a.m. 10.Heparin 5000 subcutaneous q.8 hourly. 11.Imdur 60 mg daily. 12.Lactulose 10 mg at bedtime. 13.[place] 300 mg twice a day. 14.Methylprednisolone 40 mg IV q.12 hourly. 15.Ondansetron 4 mg every 6 hours as needed. 16.Zosyn. 17.Potassium chloride 20 mEq twice a day. 18.Seroquel 300 mg at bedtime. 19.Senna two tablets p.o. b.i.d. 20.Zocor 20 mg at bedtime. 21.Spironolactone 50 mg daily. LABORATORY DATA: WBC 10.8, hemoglobin 14.3, hematocrit 44.9, platelet count 238. Sodium 141, potassium 4.5, chloride 102, bicarb 29, BUN 33, creatinine 1.6. ASSESSMENT: 1. Acute chronic obstructive pulmonary disease exacerbation. 2. Possible healthcare-associated pneumonia, Gram-negative pneumonia. 3. Acute on chronic hypoxic respiratory failure. 4. Bipolar disorder. 5. Morbid obesity. 6. Hypertension. 7. Hyperlipidemia. 8. Obstructive sleep apnea, requiring CPAP at night. 9. History of cerebrovascular accident in the past. 10.Coronary artery disease. PLAN: 1. Acute COPD exacerbation. The patient continues to have mild wheeze on physical examination, is currently on nebulizer treatment with DuoNeb and Pulmicort nebulizers. He is also on IV methylprednisone. We will gradually taper down the methylprednisone to 40 mg q.12 hourly. We will closely follow the patient. 2. Acute on chronic hypoxic respiratory failure. The patient was noted to be acutely hypoxic at the time of admission, which is improved at this time. Continue with supplemental oxygen to maintain a saturation of 90% to 95%. 3. Pneumonia. This is mostly healthcare-associated pneumonia. The patient is from long term. He will need at least 5-7 days of IV antibiotics given his Gram-negative pneumonia. Awaiting for culture reports. So far, his cultures remain negative. Continue with broad-spectrum antibiotics with ciprofloxacin, Zosyn, and metronidazole. We will switch him to oral antibiotic at the time of discharge. 4. Bipolar disorder, remains stable. Continue with lithium and Seroquel. 5. Hypertension. The patient's blood pressure seems to be in acceptable range. Continue current antihypertensive medications with Imdur. 6. DVT prophylaxis. Continue with heparin 5000 subcutaneous q.8 hourly for DVT prophylaxis. 7. The patient will be evaluated by Physical Therapy and Occupational Therapy. 8. We will discontinue the Yates catheter today. 9. The patient will be here for the next 2-3 days to complete his course of IV antibiotics which is duration for 5-7 days for Gram-negative pneumonia. [facility] /[id number]
[2016-12-23] MEDS: Divalproex Sodium 250 MG Tab.ER PO SCH (21:28)
[2016-12-23] MEDS: QUEtiapine 100 MG Tab PO SCH (21:29)
[2016-12-23] MEDS: Simvastatin 10 MG Tab PO SCH (21:30)
[2016-12-23] MEDS: Lactulose Soln 10 GM/15 ML 30 ML UD Cup PO SCH (21:31)
[2016-12-23] MEDS: Latanoprost 0.005% Ophth Soln 2.5 ML Bottle EYEBOTH SCH (21:33)
[2016-12-24] MEDS: Sodium Chloride 0.9% 10 ML Syringe FLUSH PRN ×11 (00:09→23:57)
[2016-12-24] MEDS: Piperacillin/Tazobactam 3.375 GM in Sodium Chloride 0.9% 100 ML IV SCH ×4 (00:27→17:40)
[2016-12-24] MEDS: Albuterol/Ipratropium 3.0-0.5 MG/3 ML Neb Soln NEB SCH ×4 (00:55→17:49)
[2016-12-24] MEDS: Ciprofloxacin in D5W 400 MG in Premix Bag 1 BAG IV SCH ×4 (04:05→15:39)
[2016-12-24] MEDS: Pantoprazole 40 MG Tab.CR PO SCH (05:58)
[2016-12-24] MEDS: Heparin Sodium 5,000 Units/ML Vial SUBCUT SCH ×3 (05:58→21:35)
[2016-12-24] MEDS: Isosorbide Mononitrate 60 MG Tab.ER PO SCH (06:03)
[2016-12-24] MEDS: Acetaminophen 500 MG Tab PO PRN (07:29)
[2016-12-24] MEDS: Budesonide 0.5 MG/2 ML Neb Susp NEB SCH ×2 (07:37→17:57)
[2016-12-24] MEDS: methylPREDNISolone Sodium Succinate 40 MG/1 ML SDV IVPUSH SCH ×2 (08:58→21:39)
[2016-12-24] MEDS: Potassium Chloride 10 MEQ Tab.ER PO SCH ×2 (09:03→17:39)
[2016-12-24] MEDS: Furosemide 20 MG Tab PO SCH ×2 (09:04→14:21)
[2016-12-24] MEDS: Spironolactone 25 MG Tab PO SCH (09:06)
[2016-12-24] MEDS: Lithium Carbonate 300 MG Tab.ER PO SCH ×2 (09:06→21:27)
[2016-12-24] MEDS: Allopurinol 100 MG Tab PO SCH ×2 (09:07→21:27)
[2016-12-24] MEDS: Aspirin 81 MG Tab.EC PO SCH (09:07)
--- NOTE | 2016-12-24 10:37 | PN ---
DATE: 12/24/2016 HISTORY OF PRESENT ILLNESS: Mr. Onel Slaughter is a 66-year-old male with medical history significant for hypertension, hyperlipidemia, morbid obesity, obstructive sleep apnea, chronic obstructive pulmonary disease, lymphedema, was admitted to the hospital with complaints of increasing shortness of breath and was noted to be in COPD exacerbation, acute on chronic hypoxic respiratory failure with underlying Gram-negative pneumonia. For the past 24 hours, the patient continues to have mild shortness of breath, mainly brought on by exertion. Denies any chest pain, but complains of intermittent cough. Denies any abdominal pain. No nausea. No vomiting. No diarrhea. No acute events overnight. REVIEW OF SYSTEMS: Cardiovascular, respiratory, gastrointestinal, neurology, constitutional were all evaluated. PHYSICAL EXAMINATION: Vital Signs: Temperature of 98.4, pulse of 67, blood pressure 114/71, respiratory rate of 20, saturating at 91% on 2 L of nasal cannula oxygen. General: The patient is well oriented to time, place, and person. Follows commands spontaneously. Respiratory: Clear to auscultation bilaterally except for mild wheeze at the bases. No crepitations. Abdomen: Soft. Bowel sounds positive. Nontender. No rigidity. Extremities: Edema in bilateral lower extremities. Neurology: No gross focal neurological deficits. Skin: No acute rash. Psychology: Normal mood. MEDICATIONS: Reviewed. Continue with: 1. Tylenol 500 mg every 6 hours as needed for pain. 2. Albuterol 2.5 mg nebulizer every 2 hours as needed for shortness of breath. 3. DuoNeb 3 mL nebulizer every 6 hours. 4. Allopurinol 100 mg twice a day. 5. Aspirin 81 mg daily. 6. Dulcolax 10 mg rectal daily as needed. 7. Pulmicort 0.5 mg nebulizer twice a day. 8. Ciprofloxacin 400 mg q.12 hourly. 9. Depakote 500 mg at bedtime. 10.Lasix 20 mg at p.m. and 60 mg in a.m. 11.Heparin 5000 subcutaneous q.8 hourly. 12.Imdur 60 mg daily. 13.Lactulose 10 mg at bedtime. 14.[place] 300 mg twice a day. 15.Methylprednisolone 40 mg IV q.12 hourly. 16.Protonix 40 mg daily. 17.Zosyn 3.375 g q.6 hourly. 18.Potassium chloride 20 mEq twice a day. 19.Seroquel 300 mg at bedtime. 20.Zocor 20 mg at bedtime. 21.Spironolactone 50 mg daily. LABORATORY DATA: Reviewed. No new labs ordered for today. ASSESSMENT: 1. Acute chronic obstructive pulmonary disease exacerbation. 2. Acute on chronic hypoxic respiratory failure. 3. Pneumonia, possible Gram-negative pneumonia given his senior care stay. 4. Hypertension. 5. Hyperlipidemia. 6. Morbid obesity. 7. Bipolar disorder. 8. Obstructive sleep apnea. 9. History of cerebrovascular accident in the past. 10.Coronary artery disease. PLAN: 1. Acute COPD exacerbation. The patient continues to have mild wheeze. We have been tapering down the prednisone. We will hold the methylprednisone at 40 mg twice a day. We will continue with nebulizers with DuoNeb and Pulmicort nebulizer. The patient is encouraged to use incentive spirometer and flutter valve for better pulmonary toileting. We will closely follow. 2. Acute on chronic hypoxic respiratory failure. The patient was requiring more oxygen at the time of admission. He remains stable for now. Continue with supplemental oxygen to maintain a saturation of 90% to 95%. 3. Pneumonia, possible Gram-negative pneumonia. The patient is currently on broad-spectrum IV antibiotics, continue the same. The patient will need to complete 1 week of IV antibiotics for his possible Gram-negative pneumonia. So far, his cultures remain negative. 4. Hypertension, well controlled. Continue with current antihypertensive medications. 5. Bipolar disorder. Remains stable. Continue with current doses of lithium and Seroquel. 6. DVT prophylaxis. Continue with heparin 5000 subcutaneous q.8 hourly for DVT prophylaxis. 7. Discharge plans ongoing. 8. Possible discharge on Monday back to the senior care if he remains medically stable. [facility] /[id number]
[2016-12-24] MEDS: Latanoprost 0.005% Ophth Soln 2.5 ML Bottle EYEBOTH SCH (21:24)
[2016-12-24] MEDS: Lactulose Soln 10 GM/15 ML 30 ML UD Cup PO SCH (21:24)
[2016-12-24] MEDS: Simvastatin 10 MG Tab PO SCH (21:26)
[2016-12-24] MEDS: QUEtiapine 100 MG Tab PO SCH (21:27)
[2016-12-24] MEDS: Divalproex Sodium 250 MG Tab.ER PO SCH (21:27)
[2016-12-25] MEDS: Piperacillin/Tazobactam 3.375 GM in Sodium Chloride 0.9% 100 ML IV SCH ×5 (00:10→23:58)
[2016-12-25] MEDS: Sodium Chloride 0.9% 10 ML Syringe FLUSH PRN ×10 (00:42→23:58)
[2016-12-25] MEDS: Albuterol/Ipratropium 3.0-0.5 MG/3 ML Neb Soln NEB SCH ×4 (01:04→17:36)
[2016-12-25] MEDS: Ciprofloxacin in D5W 400 MG in Premix Bag 1 BAG IV SCH ×4 (03:44→15:40)
[2016-12-25] MEDS: Heparin Sodium 5,000 Units/ML Vial SUBCUT SCH ×3 (05:51→21:43)
[2016-12-25] MEDS: Pantoprazole 40 MG Tab.CR PO SCH (05:55)
[2016-12-25] MEDS: Spironolactone 25 MG Tab PO SCH (08:36)
[2016-12-25] MEDS: Budesonide 0.5 MG/2 ML Neb Susp NEB SCH ×2 (08:36→17:36)
[2016-12-25] MEDS: methylPREDNISolone Sodium Succinate 40 MG/1 ML SDV IVPUSH SCH ×2 (08:36→21:46)
[2016-12-25] MEDS: Aspirin 81 MG Tab.EC PO SCH (08:36)
[2016-12-25] MEDS: Isosorbide Mononitrate 60 MG Tab.ER PO SCH (08:36)
[2016-12-25] MEDS: Furosemide 20 MG Tab PO SCH ×2 (08:36→15:39)
[2016-12-25] MEDS: Allopurinol 100 MG Tab PO SCH ×2 (08:37→21:50)
[2016-12-25] MEDS: Potassium Chloride 10 MEQ Tab.ER PO SCH ×2 (08:37→17:36)
[2016-12-25] MEDS: Lithium Carbonate 300 MG Tab.ER PO SCH ×2 (08:37→21:49)
--- NOTE | 2016-12-25 11:41 | PN ---
DATE: 12/25/2016 HISTORY OF PRESENTING ILLNESS: Mr. Onel Slaughter is a 66-year-old male with medical history significant for hypertension, hyperlipidemia, morbid obesity, obstructive sleep apnea, chronic obstructive pulmonary disease, and lymphedema was admitted to the hospital with complaints of increasing shortness of breath and was noted to be in COPD exacerbation with underlying gram-negative pneumonia and acute on chronic hypoxic respiratory failure at the time of admission. For the past 24 hours, the patient complains of insomnia where he had difficulty sleeping, he has not slept since 2 a.m. this morning. He denies any chest pains at this time, but complained of mild chest pain earlier today, which is retrosternal 2 to 3/10 in intensity. No clear aggravating factors. No clear relieving factors, lasted only for few seconds, nonradiating in nature, not associated with any shortness of breath. Denied any abdominal pain. No nausea. No vomiting. No diarrhea. The patient is not very compliant with his CPAP. REVIEW OF SYSTEMS: Cardiovascular, respiratory, gastrointestinal, neurology, and constitutional were all evaluated. PHYSICAL EXAMINATION: Vital Signs: Temperature of 97.9, pulse of 69, blood pressure 125/77, respiratory rate of 24, and saturating at 95% on 2 L of oxygen. General Appearance: The patient is well oriented to time, place, and person. Follows commands spontaneously. Cardiovascular System: S1 and S2 heard with normal intensity. No gallops. Respiratory System: Clear to auscultation bilaterally. No wheeze. No crepitations. Abdomen: Soft. Bowel sounds positive. Nontender. No rigidity. Extremities: Mild edema in bilateral lower extremities. Neurology: No gross focal neurological deficits. MEDICATIONS: Reviewed: 1. Continue with Tylenol 500 mg every 6 hours as needed for pain and fever. 2. Albuterol as needed. 3. DuoNeb 3 mL nebulizer q.6 hours. 4. Allopurinol 100 mg twice a day. 5. Aspirin 81 mg daily. 6. Dulcolax 10 mg rectal as needed. 7. Pulmicort 0.5 mg nebulizer twice a day. 8. Ciprofloxacin q.12 hourly. 9. Depakote 500 mg at bedtime. 10.Lasix 20 mg in p.m. and 60 mg in a.m. 11.Heparin 5000 subcu q.8 hourly. 12.Imdur 60 mg daily. 13.Xalatan eye drops. 14.[place] 300 mg twice a day. 15.Methylprednisone 40 mg IV q.12 hourly. 16.Zofran 4 mg every 6 hours as needed for nausea. 17.Protonix 40 mg daily. 18.Zosyn 3.375 g IV q.6 hourly. 19.Potassium chloride 20 mEq twice a day. 20.Seroquel 300 mg at bedtime. 21.Zocor 20 mg at bedtime. 22.Ambien 5 mg at bedtime as needed for sleep. 23.Spironolactone 50 mg daily. LABORATORY DATA: Sodium 136, potassium 4.5, chloride 98, bicarb 28, BUN 39, creatinine 1.6, and glucose 133. ASSESSMENT: 1. Acute chronic obstructive pulmonary disease exacerbation. 2. Pneumonia with possible gram-negative pneumonia. 3. Acute on chronic hypoxic respiratory failure, resolved. 4. Obstructive sleep apnea. 5. Hypertension. 6. Hyperlipidemia. 7. Coronary artery disease. 8. Obstructive sleep apnea. Not very compliance with CPAP. 9. Bipolar disorder. 10.History of cerebrovascular accident in the past. PLAN: 1. Acute COPD exacerbation. The patient's wheezing is much improved. We will continue the nebulizer treatment with DuoNeb and Pulmicort nebulizer. He is also on IV methylprednisone, continue the same. We will gradually start to taper down the steroids from tomorrow. 2. Acute on chronic hypoxic respiratory failure, much improved. He is at his baseline function. Continue supplemental oxygen as needed to maintain a saturation of 95%. 3. Pneumonia, possible gram-negative pneumonia. It is responding well to the current IV antibiotic regimen. Continue the same. He is on broad-spectrum antibiotics secondary to possible gram-negative pneumonia. He would need 1 week of IV antibiotic therapy. So far, his cultures remain negative. 4. Obstructive sleep apnea. The patient was complaining of insomnia, this is mainly from not being very compliant with his CPAP. The patient is encouraged to use the CPAP at night. We will give Ambien at night as needed to help him sleep better and we will closely follow. Be cautious regarding Ambien as he is already on Seroquel, closely monitor him. 5. Bipolar disorder, much improved. Continue with current dose of lithium and Seroquel. 6. Hypertension, improved. Continue current antihypertensive medications with Imdur. 7. Chronic congestive heart failure. He is currently on Lasix 20 mg and 60 mg, continue the same. His edema seems to be much improved. He has lost lot of weight of aftercoming to the hospital. 8. DVT prophylaxis. Continue heparin 5000 subcu q.8 hourly for DVT prophylaxis. 9. Discharge plans ongoing, possible discharge in a.m. if he remains hemodynamically stable. [facility] /[id number]
[2016-12-25] MEDS ORDERED: Zolpidem 5 MG Tab PO PRN (21:00)
[2016-12-25] MEDS: Simvastatin 10 MG Tab PO SCH (21:49)
[2016-12-25] MEDS: Divalproex Sodium 250 MG Tab.ER PO SCH (21:49)
[2016-12-25] MEDS: Latanoprost 0.005% Ophth Soln 2.5 ML Bottle EYEBOTH SCH (21:50)
[2016-12-25] MEDS: QUEtiapine 100 MG Tab PO SCH (21:50)
[2016-12-25] MEDS: Lactulose Soln 10 GM/15 ML 30 ML UD Cup PO SCH (21:57)
[2016-12-25] MEDS: Acetaminophen 500 MG Tab PO PRN (22:13)
[2016-12-26] MEDS: Albuterol/Ipratropium 3.0-0.5 MG/3 ML Neb Soln NEB SCH ×2 (00:23→07:34)
[2016-12-26] MEDS: Sodium Chloride 0.9% 10 ML Syringe FLUSH PRN ×4 (01:02→06:11)
[2016-12-26] MEDS: Ciprofloxacin in D5W 400 MG in Premix Bag 1 BAG IV SCH ×2 (03:36)
[2016-12-26] MEDS: Piperacillin/Tazobactam 3.375 GM in Sodium Chloride 0.9% 100 ML IV SCH (05:23)
[2016-12-26] MEDS: Isosorbide Mononitrate 60 MG Tab.ER PO SCH (06:05)
[2016-12-26] MEDS: Pantoprazole 40 MG Tab.CR PO SCH (06:05)
[2016-12-26] MEDS: Heparin Sodium 5,000 Units/ML Vial SUBCUT SCH (06:06)
[2016-12-26] MEDS: Budesonide 0.5 MG/2 ML Neb Susp NEB SCH (07:34)
[2016-12-26] MEDS: Furosemide 20 MG Tab PO SCH (10:22)
[2016-12-26] MEDS: Lithium Carbonate 300 MG Tab.ER PO SCH (10:22)
[2016-12-26] MEDS: Allopurinol 100 MG Tab PO SCH (10:23)
[2016-12-26] MEDS: Aspirin 81 MG Tab.EC PO SCH (10:23)
[2016-12-26] MEDS: Spironolactone 25 MG Tab PO SCH (10:23)
[2016-12-26] MEDS: methylPREDNISolone Sodium Succinate 40 MG/1 ML SDV IVPUSH SCH (10:23)
[2016-12-26] MEDS: Potassium Chloride 10 MEQ Tab.ER PO SCH (10:26)
[2016-12-26 10:41] VITALS: BP 121/68
--- NOTE | 2016-12-27 04:09 | DISCH ---
ADMITTING DIAGNOSES: 1. Acute chronic obstructive pulmonary disease exacerbation. 2. Acute on chronic hypoxic respiratory failure. 3. Pneumonia, possible gram-negative pneumonia. 4. Morbid obesity. DISCHARGE DIAGNOSES: 1. Acute chronic obstructive pulmonary disease exacerbation, resolved. 2. Pneumonia, got treated with IV antibiotics broad-spectrum for 1 week and changed to oral antibiotic at the time of discharge for possible gram- negative pneumonia. 3. Acute on chronic hypoxic respiratory failure, resolved. 4. Bipolar disorder. HISTORY OF PRESENTING ILLNESS: Mr. Onel Slaughter is a 66-year-old male with medical history significant for hypertension, hyperlipidemia, morbid obesity, obstructive sleep apnea, noncompliance with CPAP machine, chronic obstructive pulmonary disease, chronic hypoxic respiratory failure, lymphedema, admitted with complaints of increasing shortness of breath and was noted to be in acute COPD exacerbation with underlying gram-negative pneumonia and acute on chronic hypoxic respiratory failure. The patient required broad-spectrum IV antibiotics for a course of 1 week and he was treated with IV methylprednisone, DuoNeb, and Pulmicort nebulizer for his acute COPD exacerbation. The patient responded well to the treatment. His wheezing has resolved. He remained afebrile. His symptoms were much improved. He continued to be on nasal cannula oxygen, but is baseline function. He denied any ongoing chest pains or shortness of breath at this time. The patient has obstructive sleep apnea. Patient was explained about the importance of wearing CPAP at night. He will be continued with the nasal cannula oxygen. The patient had bipolar disorder and was noted to be on high dose of Seroquel at 450 mg at bedtime, which was decreased to 300 mg at bedtime to improve his mentation. The patient remained hemodynamically stable on this admission. He is discharged back to the long term in stable condition. He is advised to follow with his primary care physician next 1 week of time. DISCHARGE MEDICATIONS: Include: 1. Xanax 1 mg oral every 8 hours as needed for anxiety. 2. Acetaminophen Extra Strength 1000 mg 3 times a day for pain. 3. Albuterol 2 puffs inhalation every 4 hours as needed for dyspnea. 4. Allopurinol 100 mg twice a day. 5. Augmentin 1 tablet every 12 hours for 1 week for pneumonia. 6. Ascorbic acid 250 mg oral daily. 7. Aspirin 81 mg daily. 8. Bisacodyl 10 mg rectal daily as needed for constipation. 9. Depakote ER 750 mg at bedtime. 10.Fluoxetine 2 puff inhalation twice a day. 11.Lasix 60 mg in a.m. and 20 mg in p.m. 12.Imdur 60 mg daily. 13.Lactulose 1 tablespoon at bedtime. 14.Xalatan 1 drop eyes both at bedtime. 15.[place] 300 mg twice a day. 16.Milk of [place] 30 mL oral daily for constipation. 17.Melatonin 8 mg oral at bedtime. 18.Methylcellulose 1 tablet daily for constipation. 19.Protonix 40 mg daily. 20.Potassium chloride 20 mEq twice a day. 21.Prednisone tapered dose from 40 mg to 5 mg. 22.Seroquel 300 mg at bedtime. 23.Senokot 2 tablets twice a day. 24.Simvastatin 20 mg daily. 25.Sodium chloride nasal spray 4 times a day as needed. 26.Spironolactone 50 mg daily. 27.Hydroxyzine 25 mg oral every 8 hours. PHYSICAL EXAMINATION: Vital Signs: On the day of discharge vitals; temperature of 97.4, pulse of 73, blood pressure of 121/68, respiratory rate of 20, saturating at 94% on 1 L of oxygen. General Appearance: The patient is well oriented to time, place, and person. Follows commands spontaneously. Cardiovascular: S1 and S2 heard with normal intensity. No gallops. Respiratory: Clear to auscultation bilaterally. No wheeze. No crepitations. Abdomen: Soft. Bowel sounds positive. Nontender. No rigidity. Extremities: Mild edema in bilateral lower extremities. Neurology: No gross focal neurological deficits. CONDITION ON ADMISSION: Poor. CONDITION ON DISCHARGE: Stable. ACTIVITY: As tolerated. DIET: Cardiac healthy diet, low-sodium diet. FOLLOWUP: Follow with the primary care physician in the next 1 week of time with labs. I spent over 35 minutes of time in evaluating and treating this patient in the discharge process. [facility] /[id number]
== END 2016-12-26 11:53 | DRG 190 ==
LOC: DL.ED 11:14 → DL.MS 12:50 → UNDOADMIN 12:50 → DL.MS 13:29
PROVIDERS: ADMIT Internal Medicine; ATTEND Internal Medicine
DX: J44.1 Chronic obstructive pulmonary disease with (acute) exacerbation (principal); J15.6 Pneumonia due to other Gram-negative bacteria; J96.21 Acute and chronic respiratory failure with hypoxia; G93.40 Encephalopathy, unspecified; I13.0 Hypertensive heart and chronic kidney disease with heart failure and stage 1 through stage 4 chronic kidney disease, or unspecified chronic kidney disease; Z68.41 Body mass index [BMI] 40.0-44.9, adult; N18.2 Chronic kidney disease, stage 2 (mild); F31.9 Bipolar disorder, unspecified; Z99.81 Dependence on supplemental oxygen; I50.9 Heart failure, unspecified; I25.10 Atherosclerotic heart disease of native coronary artery without angina pectoris; E78.5 Hyperlipidemia, unspecified; K21.9 Gastro-esophageal reflux disease without esophagitis; Z86.73 Personal history of transient ischemic attack (TIA), and cerebral infarction without residual deficits; M19.90 Unspecified osteoarthritis, unspecified site; F41.9 Anxiety disorder, unspecified; E66.01 Morbid (severe) obesity due to excess calories; Z79.82 Long term (current) use of aspirin; I89.0 Lymphedema, not elsewhere classified; Z66 Do not resuscitate
CPT/HCPCS: 36410; 36415; 71010; 80053; 81001; 83605; 83880; 85025; 87040 ×2; 96365; 99284; 99285; J3370; J7040; 36600; 80048; 80202; 82140; 82803; 82962; 85027; 87804; 94060; 94640; 94660; 97162-GP; 97166-GO; A9270-GY; J0744; J1644; J1940; J2543; J2920; J7050

== ENCOUNTER 2017-03-06 05:52 | Day surgery (SDC) | payer MEDICARE, MEDICAID ==
[~2017-03-06 05:52] MED LIST: Dextrose 5%-0.45% NaCl 1,000 ML IV SCH; Sodium Chloride 0.9% 10 ML Syringe FLUSH PRN
[2017-03-06] MEDS ORDERED: Sodium Chloride 0.9% 10 ML Syringe FLUSH PRN (06:00)
[2017-03-06] MEDS ORDERED: Dextrose 5%-0.45% NaCl 1,000 ML IV SCH (06:00)
[2017-03-06] MEDS ORDERED: fentaNYL 100 MCG/2 ML SDV ONE (06:15)
[2017-03-06] MEDS ORDERED: Midazolam 1 MG/ML 2 ML SDV ONE (06:15)
[2017-03-06] MEDS ORDERED: Midazolam 1 MG/ML 2 ML SDV IV ONE ×3 (06:58→14:56)
[2017-03-06] MEDS ORDERED: fentaNYL 100 MCG/2 ML SDV IV ONE ×3 (06:58→14:56)
[2017-03-06 12:14] VITALS: BP 131/80
--- NOTE | 2017-03-06 12:47 | OR ---
DATE: 03/06/2017 PROCEDURE: Total colonoscopy, NBI, and cold snare polypectomy. INSTRUMENT USED: CF-H180AL Olympus video colonoscope. PREMEDICATIONS: Fentanyl 100 mcg intravenous, Versed 2 mg intravenous, and nasal O2 cannula. The procedure was done under pulse oximetry, BP recording, and financial institution president. INDICATION: The patient with chronic constipation and persistent right-sided lower abdominal pain unexplained and not responsive to medical measures. Colonoscopic examination is done for detection of any polypoid lesions and removal, endoscopic hemostasis therapy if needed. DESCRIPTION OF PROCEDURE: Initial rectal exam was unremarkable. Rigid anoscopy showed small internal hemorrhoids without bleeding from them. The colonoscope was passed with ease. Few scattered diverticula were noted. The examination was extremely compromised due to the presence of large amount of fecal material that could not be aspirated clear. The scope was passed with ease up to the ileocecal area, photographs were taken of the cecum showing diminutive benign-appearing polyp, NBI views were obtained, cold snare polypectomy was done, the tissue was retrieved and sent for histopathology. No bleeding was noted from any of the visualized areas at the commencement of the examination. No stricture. No vascular ectasia. No large isolated ulcerations seen. No evidence of diffuse inflammatory bowel disease in the form of friability, contact bleeding, or ulcerations. Probing the proximal sides of folds and flexures, using adequate distention and clearing up the stool material, withdrawal of the scope was made, cecum to rectum time over 6 minutes. No bleeding was noted from any of the visualized areas at the completion of examination. IMPRESSION: 1. Internal hemorrhoids. 2. Diverticulosis. 3. Diminutive cecal polyp. The patient tolerated the procedure well. [facility] /[id number]
== END 2017-03-06 09:40 | disposition home or self-care (01) ==
LOC: DL.ENDO 05:52
PROVIDERS: ATTEND Internal Medicine Gastroenterology
DX: D12.0 Benign neoplasm of cecum (principal); K64.8 Other hemorrhoids; K57.30 Diverticulosis of large intestine without perforation or abscess without bleeding; E66.01 Morbid (severe) obesity due to excess calories; F41.9 Anxiety disorder, unspecified; I13.0 Hypertensive heart and chronic kidney disease with heart failure and stage 1 through stage 4 chronic kidney disease, or unspecified chronic kidney disease; N18.9 Chronic kidney disease, unspecified; I50.30 Unspecified diastolic (congestive) heart failure; Z98.890 Other specified postprocedural states
CPT/HCPCS: 45385; J3010; J7042; 88305; J2250

== ENCOUNTER 2018-03-15 20:48 | Emergency (ER) | payer MEDICARE, MEDICAID ==
--- NOTE | 2018-03-15 21:15 | EDM.PDOC ---
ED HPI GENERAL MEDICAL PROBLEM - General Stated Complaint: IN BY AMBULANCE Time Seen by Provider: 03/15/18 20:50 Source of Information: Reports: Patient, EMS, Old Records History Limitations: Reports: Other (confused) - History of Present Illness INITIAL COMMENTS - FREE TEXT/NARRATIVE: Reported fall at [facility] while getting out of chair c/o pain to low back right hip. Found on floor by staff yelling, Normal activity able to ambulate short distance with walker. No reported loss of consciousness. GCS 15 on arrival Arrival on cot, no back board or c collar, Alert, yelling with transfer to ed cot. Airway patent, o2 at 2 L per patient usual, continued. No respiratory distress, alert answers questions, confused with dates, recognizes in hospital but unsure location as [place] or [place]. No tenderness to paraspinous with palpation of cervical, moving neck without c/o.. C- spine cleared. Tender mid thoracic to lumbar vertebra Abdomen soft no bruising , yells with palpation. No instability noted with palpation of hips and pelvis. Normal alignment of lower extremities. 3+edema below knee. Onset: Today Location: Reports: Back - Related Data Allergies Allergy/AdvReac Type Severity Reaction Status Date / Time No Known Allergies Allergy Verified 03/15/18 22:09 Home Meds: Home Meds Albuterol Sulfate [Proair Hfa] 2 puff INH Q4HR PRN 07/30/15 [History] Fluticasone Propionate [Flovent HFA 44 mcg] 2 puff INH BID 07/30/15 [History] Furosemide [Lasix] 60 mg PO 0900 07/30/15 [History] Isosorbide Mononitrate [Imdur] 60 mg PO DAILY 07/30/15 [History] Latanoprost [Xalatan 0.005% Ophth Soln] 1 drop EYEBOTH BEDTIME 07/30/15 [History ] Pantoprazole Sodium [Protonix] 40 mg PO DAILY 07/30/15 [History] Simvastatin [Zocor] 20 mg PO DAILY 07/30/15 [History] Sennosides/Docusate Sodium [Senna-S Tablet] 2 tab PO BID 08/29/15 [History] Aspirin [Halfprin] 81 tab PO DAILY 10/21/15 [History] Magnesium Hydroxide [Milk of Magnesia] 30 ml PO DAILY PRN 10/23/15 [History] Potassium Chloride 20 meq PO BID 10/23/15 [History] Spironolactone [Aldactone] 50 mg PO DAILY 10/23/15 [History] Divalproex Sodium [Depakote ER] 750 mg PO BEDTIME #30 tab.er 10/31/15 [Rx] ALPRAZolam [Xanax] 1 mg PO Q8H PRN 12/19/16 [History] Acetaminophen [Acetaminophen Extra Strength] 1,000 mg PO TID 12/19/16 [History] Allopurinol [Zyloprim] 100 mg PO BID 12/19/16 [History] Ascorbic Acid [Vitamin C] 250 mg PO DAILY 12/19/16 [History] Bisacodyl [Dulcolax] 10 mg RECTAL DAILY PRN 12/19/16 [History] Furosemide [Lasix] 20 mg PO 1400 12/19/16 [History] Lactulose 1 tbsp PO BEDTIME 12/19/16 [History] [place] Carbonate [Eskalith] 300 mg PO BID 12/19/16 [History] Melatonin 8 mg PO BEDTIME 12/19/16 [History] Methylcellulose [Fiber] 1 tab PO DAILY 12/19/16 [History] Sodium Chloride 0.65% [[place] Nasal [place]] 1 spray NASBOTH QID 12/19/16 [History] hydrOXYzine HCl [Atarax] 25 mg PO Q8HR PRN 12/19/16 [History] QUEtiapine [SEROquel] 300 mg PO BEDTIME #30 tablet 12/26/16 [Rx] Miconazole Nitrate [Zeasorb] 1 applic TOP .Q12 PRN 03/06/17 [History] traMADol HCl [Ultram] 50 mg PO ASDIRECTED PRN MDD 50 03/06/17 [History] Past Medical History HEENT History: Reports: Other (See Below) Other HEENT History: dry eye syndrome Cardiovascular History: Reports: Heart Failure, High Cholesterol, Hypertension, SOB on Exertion, Syncope, Other (See Below) Other Cardiovascular History: on 1800 ml fluid restriction Respiratory History: Reports: COPD, SOB Other Respiratory History: pulmonary hypertension, respitory failure Gastrointestinal History: Reports: GERD Genitourinary History: Reports: Other (See Below) Other Genitourinary History: chronic kidney disease stage 3 Musculoskeletal History: Reports: Arthritis Neurological History: Reports: CVA, Other (See Below) Other Neuro History: pituitary gland removal Psychiatric History: Reports: Anxiety, Bipolar, Depression, Other (See Below) Other Psychiatric History: manic depression. follows neurology Endocrine/Metabolic History: Reports: None Hematologic History: Reports: None Immunologic History: Reports: None Dermatologic History: Reports: Other (See Below) - Infectious Disease History Infectious Disease History: Reports: Chicken Pox, Measles, Mumps - Past Surgical History Head Surgeries/Procedures: Social & Family History - Family History HEENT: Reports: None Cardiac: Reports: None Respiratory: Reports: None GI: Reports: None - Caffeine Use Caffeine Use: Reports: Coffee, Soda Review of Systems - Review of Systems Review Of Systems: See Below Eyes: Reports: No Symptoms Ears: Reports: No Symptoms Nose: Reports: No Symptoms Mouth/Throat: Reports: No Symptoms Respiratory: Reports: No Symptoms Cardiovascular: Reports: No Symptoms GI/Abdominal: Reports: No Symptoms Musculoskeletal: Reports: Back Pain (mid thoracic to lumbar). Denies: Neck Pain , Shoulder Pain, Arm Pain Skin: Reports: No Symptoms Neurological: Reports: Confusion (mild). Denies: Weakness, Change in Speech Psychiatric: Reports: No Symptoms (hx bilpolar) ED EXAM, GENERAL - Physical Exam Exam: See Below Exam Limited By: No Limitations General Appearance: Alert, Obese (morbid) Eye Exam: Bilateral Eye: EOMI, PERRL (4mm) Ears: Normal External Exam, Normal Canal, Normal TMs Nose: Normal Inspection Throat/Mouth: Normal Inspection Head: Other (tender upperoccipital) Neck: No: Tender Lateral, Tender Midline Respiratory/Chest: No Respiratory Distress, Lungs Clear, Chest Non-Tender Cardiovascular: Normal Peripheral Pulses, Regular Rate, Rhythm. No: No Edema (3 + lower extremities) GI/Abdominal: Normal Bowel Sounds, Soft, Tender (generalized) Back Exam: Paraspinal Tenderness, Vertebral Tenderness (mid thoracic to pelvis) Extremities: Other (yells out with movement from Ems cot to ED cart. Generalized discomfort, does not localize pain, no gross deformities, full movment of upper extremities on arrival) Neurological: Alert, Oriented (person date, ). No: Slow to Respond Psychiatric: Normal Affect Skin Exam: Warm, Dry, Intact, Wound/Incision (quarter size abrasion right scapula), Other (fash flushed) Course - Orders/Labs/Meds Labs: Laboratory Tests 03/16/18 03/16/18 Range/Units 00:45 00:45 WBC 10.9 H (5.0-10.0) 10^3/uL RBC 4.87 (4.6-6.2) 10^6/uL Hgb 14.7 (14.0-18.0) g/dL Hct 45.5 (40.0-54.0) % MCV 93.4 (80-100) fL MCH 30.2 (27.0-34.0) pg MCHC 32.3 L (33.0-35.0) g/dL Plt Count 167 (150-450) 10^3/uL Neut % (Auto) 67.1 (42.2-75.2) % Lymph % (Auto) 21.9 (20.5-50.1) % [place] % (Auto) 7.9 (2-8) % Eos % (Auto) 2.6 (1.0-3.0) % Baso % (Auto) 0.5 (0.0-1.0) % Sodium 137 (135-145) mmol/L Potassium 4.0 (3.6-5.0) mmol/L Chloride 93 L (101-111) mmol/L Carbon Dioxide 37.0 H (21.0-31.0) mmol/L Anion Gap 11.0 BUN 18 (7-18) mg/dL Creatinine 1.3 (0.6-1.3) mg/dL Est Cr Clr Drug Dosing 58.73 mL/min Estimated GFR (MDRD) 55 BUN/Creatinine Ratio 13.84 Glucose 106 H (74-105) mg/dL Calcium 9.6 (8.4-10.2) mg/dl Total Bilirubin 0.6 (0.2-1.0) mg/dL AST 31 (10-42) IU/L ALT 21 (10-60) IU/L Alkaline Phosphatase 45 (42-121) IU/L Total Protein 6.4 L (6.7-8.2) g/dl Albumin 3.7 (3.2-5.5) g/dl Globulin 2.7 Albumin/Globulin Ratio 1.37 Meds: Medications Discontinued Medications Generic Name Dose Route Start Last Admin Trade Name Freq PRN Reason Stop Dose Admin Ketorolac Tromethamine 30 mg 03/16/18 00:40 03/16/18 00:58 Toradol IVPUSH 03/16/18 00:41 30 mg ONETIME ONE Administration - Radiology Interpretation Free Text/Narrative:: CT head neck thoracic, lumbar abdomen iand pelvis negative. - Re-Assessments/Exams Free Text/Narrative Re-Assessment/Exam: Patient dozing, arouses easily to voice complaint of right hip and low back pain, non tender with palpation, able to move right hip independently with internal, external rotation. partially turn over in bed without c/o, unable to complete turn due to body habitus. 03/16/18 01:43 light dozing arouses easily. Tx to wheel chair for discharge, initial yelling with movment. from lying to sitting. transfer from cot to chair with supervision Departure - Departure Time of Disposition: 01:46 Disposition: DC/Tfer to [facility] Condition: Good Clinical Impression: Hip pain, right, Morbid obesity Contusion of back Qualifiers: Encounter type: initial encounter Laterality: right Qualified Code(s): S20.221A - Contusion of right back wall of thorax, initial encounter Fall at [facility] Qualifiers: Encounter type: initial encounter Qualified Code(s): W19.XXXA - Unspecified fall, initial encounter Low back pain Qualifiers: Chronicity: unspecified Back pain laterality: midline Sciatica presence: without sciatica Qualified Code(s): M54.5 - Low back pain - Discharge Information Instructions: Muscle Cramps and Spasms, [id number] Referrals: PCP,Unobtain [Primary Care Provider] - Forms: ED Department Discharge Additional Instructions: Resume previous [facility] orders Yelnol 650mg every 4 hours as needed for mild discomfort Tramadol per previous [place] order Follow up if symptoms worsen with uncontrolled pain or change in status
[2018-03-16] MEDS ORDERED: Ketorolac 30 MG/ML SDV IVPUSH ONE (00:40)
== END 2018-03-16 02:10 ==
LOC: DL.ED 20:48
DX: S20.221A Contusion of right back wall of thorax, initial encounter (principal); M25.551 Pain in right hip; E66.8 Other obesity; E78.00 Pure hypercholesterolemia, unspecified; I13.0 Hypertensive heart and chronic kidney disease with heart failure and stage 1 through stage 4 chronic kidney disease, or unspecified chronic kidney disease; I50.9 Heart failure, unspecified; N18.3 Chronic kidney disease, stage 3 (moderate); K21.9 Gastro-esophageal reflux disease without esophagitis; Z79.899 Other long term (current) drug therapy; Z79.82 Long term (current) use of aspirin; W19.XXXA Unspecified fall, initial encounter; Y92.129 Unspecified place in nursing home as the place of occurrence of the external cause
CPT/HCPCS: 36415; 70450; 71250; 72125; 72128; 72131; 72195; 74176; 80053; 85025; 96374; 99284; 99285; J1885

== ENCOUNTER 2020-05-05 14:22 | Emergency (ER) | payer MEDICARE, MEDICAID ==
--- NOTE | 2020-05-05 14:24 | EDM.PDOC ---
ED HPI GENERAL MEDICAL PROBLEM - General Chief Complaint: Trauma Stated Complaint: AMBULANCE Time Seen by Provider: 05/05/20 14:29 Source of Information: Reports: Patient, EMS, Old Records, RN, RN Notes Reviewed History Limitations: Reports: Other (Dementia, hearing impaired) - History of Present Illness INITIAL COMMENTS - FREE TEXT/NARRATIVE: Pt arrives from [place] by [facility] with report of injury/pain to back of head, neck, and upper back sustained just [employer] [place] when pt's wheelchair tipped over backward as he went up a ramp. Pt struck his head on the concrete and hit his upper back on his oxygen tank per EMS. Pt has Hx of dementia and mental illness with baseline confusion. Pt denies any history other than to say he got hurt when he tipped his chair over and has pain in the head, neck, upper back and legs. EMS states witnesses reported that there was no LOC. TRAUMA NOTES: Pre-arrival trauma alert by EMS at 1351HRS ARRIVAL TIME: 1429HRS C-COLLAR STATUS: no c-collar due to severe obesity, head blocks and strapped for c-spine immobilization SPINAL BOARD/IMMOBILIZATION STATUS: arrived on long spine board, cleared from long spine board in CT just after arrival (use of board to move pt due to wt >300lbs and pt chronically immobile). GCS ON ARRIVAL: 14 = baseline confusion/disorientation chronic and unchanged. Onset: Today, Gradual Duration: Constant Location: Reports: Head, Neck, Back Quality: Reports: Ache Severity: Moderate Improves with: Reports: None Worsens with: Reports: Movement Context: Reports: Trauma (Fall, tipped backward in wheelchair.) Associated Symptoms: Reports: No Other Symptoms - Related Data Allergies Allergy/AdvReac Type Severity Reaction Status Date / Time No Known Allergies Allergy Verified 03/15/18 22:09 Home Meds: Home Meds Albuterol Sulfate [Proair Hfa] 2 puff INH Q4HR PRN 07/30/15 [History] Fluticasone Propionate [Flovent HFA 44 mcg] 2 puff INH BID 07/30/15 [History] Furosemide [Lasix] 60 mg PO 0900 07/30/15 [History] Isosorbide Mononitrate [Imdur] 60 mg PO DAILY 07/30/15 [History] Latanoprost [Xalatan 0.005% Oph Soln] 1 drop EYEBOTH BEDTIME 07/30/15 [History] Pantoprazole Sodium [Protonix] 40 mg PO DAILY 07/30/15 [History] Simvastatin [Zocor] 20 mg PO DAILY 07/30/15 [History] Sennosides/Docusate Sodium [Senna-S Tablet] 2 tab PO BID 08/29/15 [History] Aspirin [Halfprin] 81 tab PO DAILY 10/21/15 [History] Magnesium Hydroxide [Milk of Magnesia] 30 ml PO DAILY PRN 10/23/15 [History] Potassium Chloride 20 meq PO BID 10/23/15 [History] Spironolactone [Aldactone] 50 mg PO DAILY 10/23/15 [History] Divalproex Sodium [Depakote ER] 750 mg PO BEDTIME #30 tab.er 10/31/15 [Rx] ALPRAZolam [Xanax] 1 mg PO Q8H PRN 12/19/16 [History] Acetaminophen [Acetaminophen Extra Strength] 1,000 mg PO TID 12/19/16 [History] Allopurinol [Zyloprim] 100 mg PO BID 12/19/16 [History] Ascorbic Acid [Vitamin C] 250 mg PO DAILY 12/19/16 [History] Bisacodyl [Dulcolax] 10 mg RECTAL DAILY PRN 12/19/16 [History] Furosemide [Lasix] 20 mg PO 1400 12/19/16 [History] Lactulose 1 tbsp PO BEDTIME 12/19/16 [History] [place] Carbonate [Eskalith] 300 mg PO BID 12/19/16 [History] Melatonin 8 mg PO BEDTIME 12/19/16 [History] Methylcellulose [Fiber] 1 tab PO DAILY 12/19/16 [History] Sodium Chloride 0.65% [[place] Nasal [place]] 1 spray NASBOTH QID 12/19/16 [History] hydrOXYzine HCl [Atarax] 25 mg PO Q8HR PRN 12/19/16 [History] QUEtiapine [SEROquel] 300 mg PO BEDTIME #30 tablet 12/26/16 [Rx] Miconazole Nitrate [Zeasorb] 1 applic TOP .Q12 PRN 03/06/17 [History] traMADol HCl [Ultram] 50 mg PO ASDIRECTED PRN MDD 50 03/06/17 [History] Past Medical History HEENT History: Reports: Other (See Below) Other HEENT History: dry eye syndrome Cardiovascular History: Reports: Heart Failure, High Cholesterol, Hypertension, SOB on Exertion, Syncope, Other (See Below) Other Cardiovascular History: on 1800 ml fluid restriction Respiratory History: Reports: COPD, SOB Other Respiratory History: pulmonary hypertension, respitory failure Gastrointestinal History: Reports: GERD Genitourinary History: Reports: Other (See Below) Other Genitourinary History: chronic kidney disease stage 3 Musculoskeletal History: Reports: Arthritis Neurological History: Reports: CVA, Other (See Below) Other Neuro History: pituitary gland removal Psychiatric History: Reports: Anxiety, Bipolar, Depression, Other (See Below) Other Psychiatric History: manic depression. follows neurology Endocrine/Metabolic History: Reports: None Hematologic History: Reports: None Immunologic History: Reports: None Dermatologic History: Reports: Other (See Below) - Infectious Disease History Infectious Disease History: Reports: Chicken Pox, Measles, Mumps - Past Surgical History Head Surgeries/Procedures: Social & Family History - Family History HEENT: Reports: None Cardiac: Reports: None Respiratory: Reports: None GI: Reports: None - Caffeine Use Caffeine Use: Reports: Coffee, Soda - Living Situation & Occupation Living situation: Reports: Extended Care Facility Occupation: Disabled Review of Systems - Review of Systems Review Of Systems: Comprehensive ROS is negative, except as noted in HPI. ED EXAM, GENERAL - Physical Exam Exam: See Below Free Text/Narrative:: PRIMARY TRAUMA SURVEY (1431hrs) AIRWAY: Patent nasal and oral airways. BREATHING: Spontaneous respirations with clear B/L breath sounds. CIRCULATION: Heart RRR, intact distal pulses at all four extremities, no cyanosis. DEFORMITY/DISABILITY: Long spine board removed by log roll with C-spine support. No scalp laceration. No long bone deformities. No active bleeding. No neuro. deficits. Abdomen benign to exam. Pelvis stable. Extremities atraumatic. EXPOSURE: Skin warm, and dry. SECONDARY TRAUMA SURVEY FOLLOWS (1520hrs) Exam Limited By: Physical Impairment General Appearance: Alert, Obese Eye Exam: Bilateral Eye: EOMI, Normal Inspection, PERRL Ears: Normal External Exam, Hearing Grossly Normal Nose: Normal Inspection, Normal Mucosa, No Blood Throat/Mouth: Normal Inspection, Normal Lips, Normal Voice, No Airway Compromise Head: Normocephalic, Other (Posterior scalp tenderness witn no visible swelling or laceration.) Neck: Supple, Full Range of Motion, Other (C-spine cleared by CT scan at 1521HRS.) Respiratory/Chest: No Respiratory Distress, Lungs Clear, No Accessory Muscle Use, Chest Non-Tender, Decreased Breath Sounds Cardiovascular: Normal Peripheral Pulses, Regular Rate, Rhythm GI/Abdominal: Normal Bowel Sounds, Soft, Non-Tender, Other (Benign obese abdomen) (Male) Exam: Deferred Rectal (Males) Exam: Deferred Back Exam: Paraspinal Tenderness (T-spine). No: CVA Tenderness (L), CVA Tenderness (R), Vertebral Tenderness Extremities: Normal Inspection, Normal Range of Motion, Other (No visible bruising, swelling, or deformity). No: Joint Swelling Neurological: Alert, CN II-XII Intact, No Motor/Sensory Deficits, Other (GCS at 1 hour 14. GCS at discharge 14.) Psychiatric: Normal Mood Skin Exam: Warm, Dry, Intact Course - Vital Signs Last Recorded V/S: see paper trauma chart for VS, reviewed by me. - Orders/Labs/Meds Meds: Medications Discontinued Medications Generic Name Dose Route Start Last Admin Trade Name Freq PRN Reason Stop Dose Admin Hydrocodone Bitart/Acetaminophen 1 tab 05/05/20 15:34 [place] 325-10 Mg PO 05/05/20 15:35 ONETIME ONE - Radiology Interpretation Free Text/Narrative:: CT Head: no acute finding, multiple chronic/stable findings per Rad. report. CT C-spine: no acute C-spine fracture or dislocations per Rad. report. CT T-spine: no acute T-spine fractures per Rad. report. - Re-Assessments/Exams Free Text/Narrative Re-Assessment/Exam: 05/05/20 15:52 Pt feels improved, and is relieved knowing that his scans show no intracranial bleed or broken bones. He now wishes to be returned to his NH room as soon as possible. Departure - Departure Time of Disposition: 16:00 Disposition: Home, Self-Care 01 Condition: Fair Clinical Impression: Fall involving wheelchair as cause of accidental injury Qualifiers: Encounter type: initial encounter Qualified Code(s): W05.0XXA - Fall from non- moving wheelchair, initial encounter Minor head injury without loss of consciousness Qualifiers: Encounter type: initial encounter Qualified Code(s): S09.90XA - Unspecified injury of head, initial encounter Acute thoracic back pain Qualifiers: Back pain laterality: bilateral Qualified Code(s): M54.6 - Pain in thoracic spine - Discharge Information *PRESCRIPTION DRUG MONITORING PROGRAM REVIEWED*: Not Applicable *COPY OF PRESCRIPTION DRUG MONITORING REPORT IN PATIENT BENJAMIN: Not Applicable Instructions: Acute Back Pain, Adult Forms: ED Department Discharge Additional Instructions: Follow up with your primary doctor if not improving as expected. Use increased precautions to prevent tipping over in your chair.
--- NOTE | 2020-05-05 15:05 | CT ---
EXAMINATION: Head wo Cont SEX: Male AGE: 69 years CLINICAL HISTORY: 69-year-old male injured (struck back of head on concrete) when wheelchair tipped over backwards. No loss of consciousness known. Scan technique: Volume acquisition of data emergency unenhanced CT scan of the head and brain obtained with the patient lying supine on the Siemens multislice scanner [place], [place]. All data archived in the PACS system for storage, reformatting axial/sagittal/coronal planes and study (bone/brain windows). Interpretation: Abnormal but unchanged when compared directly to previous CT scan head 15 March 2018. 1. Uniformly thick bony calvarium without sign of skull fracture, underlying brain contusion or abnormal extracerebral/intracranial epidural/subdural hematoma. No basal skull fracture or contrecoup frontal injury. 2. Asymmetric large area ischemic infarct or encephalomalacia involving the occipital lobe, posteriorly, left cerebral hemisphere stable and unchanged. No edema or shift of the midline structures (positional artifact). 3. No new signs of supratentorial or posterior fossa mass lesion. No hydrocephalus. 4. Cerebellum and brainstem unremarkable. 5. Symmetric clear pneumatization of the paranasal and mastoid sinuses. 6. No foreign bodies.
--- NOTE | 2020-05-05 15:17 | CT ---
EXAMINATION: Cervical Spine wo Cont SEX: Male AGE: 69 years CLINICAL HISTORY: 69-year-old male head trauma (wheelchair tipped over backwards; head hit concrete). Scan technique: Volume acquisition of data emergency unenhanced CT scan of the cervical spine obtained with the patient lying supine on the Siemens multislice scanner [place], [place]. All data archived in the PACS system for storage, reformatting axial/sagittal/coronal planes and study. Interpretation: No fractures or dislocation. 1. Reactive atlantoaxial sclerosis and signs of chronic severe mid/lower cervical disc disease i.e. interspace loss with dense endplate sclerosis and hypertrophic marginal/uncinate spur formation C4-5, C5-6 and C6-7 levels. 2. No sign of prevertebral soft tissue swelling, cervical fracture, spondylolisthesis or jumped locked facets. 3. No pathologic skeletal lesions. 4. First ribs unremarkable. Lung apices clear. No abnormal air collections in the soft tissues of the neck. 5. No basal skull fracture. Symmetric clear pneumatization of the mastoid sinuses.
[2020-05-05] MEDS ORDERED: Acetaminophen/HYDROcodone 325-10 MG Tab PO ONE (15:34)
--- NOTE | 2020-05-05 15:35 | CT ---
EXAMINATION: Thoracic Spine wo Cont SEX: Male AGE: 69 years CLINICAL HISTORY: 69-year-old male experiencing head neck and back trauma with wheelchair tipped over backwards (head hit on concrete). Emergency CT scan head and cervical spine revealed "no fractures". Scan technique: Volume acquisition of data emergency unenhanced CT scan of the entire thoracic spine obtained with patient lying supine on the Siemens multislice scanner [place], [place]. All data archived in the PACS system for storage, reformatting axial/sagittal/coronal planes and study (soft tissue/bone windows). Interpretation: 1. Small renal cortical mass lesion anteriorly upper pole left kidney with some calcification in the margin. 2. Good bone mineral density for age and gender. Mild kyphoscoliosis. 3. Chronic multilevel disc disease with associated hypertrophic spondylosis lower cervical and entire thoracic spine. 4. No sign of pathologic skeletal lesion, thoracic fracture or dislocation. Small hemangioma L1. 5. Normal caliber thoracic and upper abdominal aorta. CONCLUSION: No acute fracture thoracic spine.
== END 2020-05-05 17:18 | disposition home or self-care (01) ==
LOC: DL.ED 14:22
DX: S00.83XA Contusion of other part of head, initial encounter (principal); M54.6 Pain in thoracic spine; I13.0 Hypertensive heart and chronic kidney disease with heart failure and stage 1 through stage 4 chronic kidney disease, or unspecified chronic kidney disease; N18.3 Chronic kidney disease, stage 3 (moderate); I50.9 Heart failure, unspecified; E78.00 Pure hypercholesterolemia, unspecified; J44.9 Chronic obstructive pulmonary disease, unspecified; K21.9 Gastro-esophageal reflux disease without esophagitis; M19.90 Unspecified osteoarthritis, unspecified site; F41.9 Anxiety disorder, unspecified; F31.9 Bipolar disorder, unspecified; Z79.899 Other long term (current) drug therapy; Z79.82 Long term (current) use of aspirin; W05.0XXA Fall from non-moving wheelchair, initial encounter
CPT/HCPCS: 70450; 72125; 72128; 99284-25; A9270-GY